=== PATIENT | female | born 1945 | race Hispanic/Latino ===

== ENCOUNTER → 2017-07-11 15:23 | Outpatient (CLI) | payer MEDICARE, OTHER, SELFPAY ==
--- NOTE | 2017-07-11 15:28 | DI.RAD.S_ITS ---
PROCEDURE: XR HIP W PEL IF DONE RT 2V INDICATIONS: Pain Right SI and hip TECHNIQUE: 2 views of the hip were acquired, including frontal view of the right hip during pelvis plain film examination. COMPARISON: None. FINDINGS: Bones: No fractures or dislocations. No suspicious bony lesions. The visualized pelvic ring appears intact. Soft tissues: No suspicious soft tissue calcifications or masses. 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 Note is made of a mild to moderate degree of symmetric sacroiliac joint degenerative osteoarthritic change, but the study is not optimized for SI joint visualization. Dictated by: Denis Saleh M.D. on 07/11/2017 at 16:25 Approved by: Denis Saleh M.D. on 07/11/2017 at 16:25
--- NOTE | 2017-07-11 15:28 | DI.RAD.S_ITS ---
PROCEDURE: XR LUMBAR SPINE 2-3V INDICATIONS: Pain Right SI and hip TECHNIQUE: 3 views of the lumbar spine were acquired. COMPARISON: None. FINDINGS: Bones: 5 rub-thh-unsllhr vertebrae are present. There is normal bony alignment. No vertebral body compression fractures. No suspicious bony lesions. Soft tissues: Overlying bowel gas pattern is normal. No suspicious soft tissue calcifications. IMPRESSION: There is a moderate degree of degenerative disc disease at L3-S1, most pronounced at L4-5 where disc height reduction is prominent. Facet osteoarthritis is prominent bilaterally at L4-5 and L5-S1. Spinal and foraminal stenosis likely is present at L4-5. Dictated by: Denis Saleh M.D. on 07/11/2017 at 16:24 Approved by: Denis Saleh M.D. on 07/11/2017 at 16:24
[2017-07-11 19:22] LABS: Free T4, Direct Thyroxine 1.12 ng/dL (0.78-2.19)
[2017-07-11 19:36] LABS: Thyroid Stimulating Hormone 3.03 uIU/mL (0.47-4.68)
== END ==
PROVIDERS: Family Provider Physician Assistant; PCP Physician Assistant; Visit Provider Physician Assistant
DX: M54.5 Low back pain (principal); M25.551 Pain in right hip; R53.83 Other fatigue; R63.5 Abnormal weight gain
CPT/HCPCS: 36415; 72100; 73502; 84439; 84443

== ENCOUNTER 2017-10-22 17:40 | Emergency (ER) | payer MEDICARE, OTHER, SELFPAY ==
[2017-10-22 17:55] VITALS: BP 202/89; PULSE 115; RESP 20; O2SAT 99; BMI 36.5
--- NOTE | 2017-10-22 18:06 | DI.RAD.S_ITS ---
PROCEDURE: XR CHEST 1V INDICATIONS: chest pain TECHNIQUE: One view of the chest was acquired. COMPARISON: None. FINDINGS: Surgical changes and devices: None. Lungs and pleura: No pleural effusions or pneumothorax. Lungs are clear. Mediastinum: Mediastinal contours appear normal. Heart size is normal. Bones and chest wall: No suspicious bony lesions. Overlying soft tissues appear unremarkable. IMPRESSION: No acute cardiopulmonary findings. Dictated by: Embre Poole M.D. on 10/22/2017 at 18:30 Approved by: Ember Poole M.D. on 10/22/2017 at 18:30
[2017-10-22 18:50] LABS: Add Manual Diff / Slide Review NO; Basophils Percent Auto 0.6 % (0-2); Eosinophils Percent Auto 0.3 % (2-4); Hematocrit 42.8 % (36-46); Hemoglobin 14.4 g/dL (12.0-16.0); Lymphocytes Percent Auto 13.1 % (25-40); Mean Corpuscular HGB Conc 33.6 % (30-36); Mean Corpuscular Hemoglobin 29.6 PG (26-34); Mean Corpuscular Volume 87.9 fL (80-100); Monocytes Percent Auto 3.2 % (3-14); Neutrophils Absolute Auto 9300 /uL (3000-5900); Neutrophils Percent Auto 82.8 % (50-75); Platelet Count 270 X10^3/uL (150-400); Red Blood Cell Count 4.86 X10^6/uL (4.0-5.2); White Blood Cell Count 11.2 X10^3/uL (4.5-11.0)
--- NOTE | 2017-10-22 19:01 | ED.WEAKNESS ---
HPI - Weakness General Chief complaint: Weakness Stated complaint: LEFT ARM PAIN Time Seen by Provider: 10/22/17 18:04 Source: patient Mode of arrival: ambulatory Limitations: no limitations History of Present Illness HPI Narrative: Patient is a 71-year-old female here for evaluation of left upper back pain and a doll toothache type pain in her left upper arm. She states that it has been constant for the past several days. She states she woke up 1 day with the pain. No chest pain. No shortness of breath. Took a hydrocodone at home prior to arrival for the symptoms but she states she became very nauseous and threw up afterwards. No fevers. Does have some neck pain. No specific trauma. She does state that is been constant for the past several days. She has gone to bed with it at night woke up with it in the morning. She came in today because she vomited earlier today. Related Data Home Medications Medication Instructions Recorded Confirmed [BIOSIL] 2 cap PO QDAY #0 03/22/16 albuterol sulfate HFA 90 2 puff INHALATION Q4-6H PRN 07/11/17 mcg/actuation aerosol inhaler complete b vitamin PO 07/11/17 07/11/17 cyclobenzaprine 10 mg tablet 10 mg PO Q8H 07/11/17 07/11/17 esomeprazole magnesium 40 mg 40 mg PO DAILY 07/11/17 capsule,delayed release vitamin b 12 PO 07/11/17 07/11/17 Previous Rx's Medication Instructions Recorded [place] 5/16 Inch ea INJ BID #180 04/04/16 fluticasone [Flovent HFA] 2 mcg INH Q12H #1 inh 04/04/16 pneumoc 13-guillermina conj-dip cr(PF) 0.5 ml IM X1 #1 ea 10/12/16 [Prevnar 13 (PF)] fexofenadine 180 mg PO HS #90 tab 03/06/17 insulin glargine (U-100) 100 40 unit SUBCUT BID #3 ml 06/26/17 unit/mL (3 mL) subcutaneous pen lisinopril 40 mg tablet 40 mg PO Q DAY #90 tab 06/26/17 pen needle, diabetic 33 gauge x #100 each 06/26/17 5/16 furosemide 20 mg tablet 20 mg PO DAILY #90 tab 07/20/17 cyclobenzaprine 10 mg PO TID PRN #14 tab 10/22/17 Allergies Allergy/AdvReac Type Severity Reaction Status Date / Time acetaminophen [ACETAMINOPHEN] AdvReac Severe (PERCOCET) Verified 10/22/17 17:55 CONVULSION oxycodone [OXYCODONE] AdvReac Severe (PERCOCET) Verified 10/22/17 17:55 CONVULSION hydrochlorothiazide AdvReac Mild nausea Verified 10/22/17 17:55 Review of Systems Constitutional Denies fatigue, Denies fever(s), Reports headache(s) and Denies malaise ENT Ears, Nose, Mouth, and Throat: Reports headache(s) and Denies disequilibrium Cardiovascular Denies chest pain and Denies dyspnea Respiratory Denies dyspnea Gastrointestinal Gastrointestinal: Denies abdominal pain, Denies change in stool character, Denies diarrhea, Reports nausea and Reports vomiting Genitourinary Denies hematuria and Denies dysuria Musculoskeletal Reports back pain, Reports myalgias, Denies arthralgias and Reports tingling Integumentary/Breasts Denies lesions and Denies rash Neurologic Reports headache(s), Reports tingling, Reports paresthesias and Denies disequilibrium Endocrine Denies fatigue Hematologic/Lymphatic Denies easy bleeding and Denies easy bruising [facility] Medical History Controlled type 2 diabetes mellitus without complication (Chronic 10/21/10) Essential hypertension (Chronic) Mild intermittent asthma with acute exacerbation (Chronic 06/01/10) Obesity (Chronic) Allergy (Chronic Unknown) Asthma (Chronic Unknown) Diabetes (Chronic Unknown) Diverticulosis (Chronic Unknown) Hypertension (Chronic Unknown) Back pain (Resolved Unknown) Colon polyps (Resolved Unknown) Macromastia (Resolved Unknown) Surgical History History of bilateral breast reduction surgery (Resolved 11/2016) History of total abdominal hysterectomy and bilateral salpingo-oophorectomy (Resolved 1989) Family History Mother Diabetes mellitus Diverticulitis Brother FH: CABG (coronary artery bypass surgery) Hypertension Diabetes mellitus Grandmother No problems noted. Social History Smoking Status: Former smoker Exam Initial Vital Signs Initial Vital Signs: Vital Signs Pulse Rate 115 H 10/22/17 17:55 Respiratory Rate 20 10/22/17 17:55 Blood Pressure 202/89 H 10/22/17 17:55 Pulse Oximetry 99 10/22/17 17:55 Const General: cooperative, comfortable (Uncomfortable.), well developed, well groomed and No acute distress Orientation: alert, awake and oriented x3 HENMT Head: normal to inspection and normocephalic Resp Effort & Inspection: normal respiratory effort Auscultation: clear to auscultation bilaterally Cardio Rate: regular rate Rhythm: regular rhythm Heart Sounds: no murmurs Pulses: radial pulses present GI Inspection: non-distended Palpation: soft Back/Spine/Pelvis Other: Patient with tenderness to palpation left upper back over the rhomboids and levator scapulae muscles. There is a muscle fullness in this area. This does seem to be the most sensitive area to touch according to the patient. Does not have this tenderness over the right side. Was able to reproduce the pain in her left arm by doing Spurling maneuver to the left. Skin Lesions: no lesions Rashes: no rashes Neuro General: alert, awake and oriented x3 Cognition: normal cognition Speech: speech normal Gait: normal gait Motor: muscle tone normal throughout Sensory Exam: no sensory deficits noted (Sensation intact to light touch left upper extremity) Extrem Other: Full range of motion of the left wrist left elbow left shoulder Psych Appearance: grossly normal and well kempt Course Orders Ordered: ED Orders 10/22/17 18:00 EKG-12 Lead Stat 10/22/17 18:06 XR chest 1V Stat 10/22/17 18:30 Complete Blood Count AUTO DIFF Stat Comprehensive Metabolic Panel Stat Lactate (Lactic Acid) Stat Lipase Stat Thyroid Stimulating Hormone Stat Troponin I Stat Discontinued Medications Cyclobenzaprine HCl (Flexeril 10 Mg Prepack) 1 bottle MISC SEEINSTR ONE Stop: 10/22/17 20:25 Last Admin: 10/22/17 20:40 Dose: 1 bottle Diazepam (Valium) 5 mg PO NOW ONE Stop: 10/22/17 19:03 Last Admin: 10/22/17 19:13 Dose: 5 mg Ondansetron HCl (Zofran Odt) 4 mg PO NOW ONE Stop: 10/22/17 19:03 Last Admin: 10/22/17 19:13 Dose: 4 mg Vital Signs - 8 hr 10/22/17 17:55 10/22/17 19:30 10/22/17 20:00 Pulse Rate 115 H 105 H 100 H Respiratory Rate 20 10 L 18 Blood Pressure 202/89 H Blood Pressure [Left Arm] 181/82 H 181/82 H Pulse Oximetry 99 97 94 MDM - Weakness Lab Data Attestation: I reviewed the patient's lab results. Result diagrams: 10/22/17 18:30 10/22/17 18:30 Lab Results 10/22/17 10/22/17 10/22/17 Range/Units 18:30 18:30 18:30 WBC 11.2 H (4.5-11.0) X10^3/uL RBC 4.86 (4.0-5.2) X10^6/uL Hgb 14.4 (12.0-16.0) g/dL Hct 42.8 (36-46) % MCV 87.9 (80-100) fL MCH 29.6 (26-34) PG MCHC 33.6 (30-36) % RDW 14.0 (11.6-14.8) % Plt Count 270 (150-400) X10^3/uL Neut % (Auto) 82.8 H (50-75) % Lymph % (Auto) 13.1 L (25-40) % [place] % (Auto) 3.2 (3-14) % Eos % (Auto) 0.3 L (2-4) % Baso % (Auto) 0.6 (0-2) % Neut # (Auto) 9300 H (4852-2442) /uL Sodium 145 (137-145) mmol/L Potassium 3.9 (3.4-5.1) mmol/L Chloride 107 (98-107) mmol/L Carbon Dioxide 28 (22-32) mmol/L BUN 18 H (7-17) mg/dL Creatinine 0.60 (0.52-1.04) mg/dL Estimated GFR > 60.0 (>60) mL/min BUN/Creatinine Ratio 30.0 H (6-22) Glucose 201 H (80-110) mg/dL Lactate 1.2 (0.7-2.1) mmol/L Calcium 9.4 (8.4-10.2) mg/dL Total Bilirubin 0.6 (0.2-1.3) mg/dL AST 50 H (14-36) IU/L ALT 37 (9-52) IU/L Alkaline Phosphatase 88 (38-126) U/L Troponin I < 0.012 (0.01-0.034) ng/mL Total Protein 7.9 (6.3-8.2) g/dL Albumin 4.5 (3.5-5.0) g/dL Globulin 3.4 (1.7-4.1) g/dL Albumin/Globulin Ratio 1.3 (1.0-2.8) Lipase 74 (23-300) U/L TSH (0.47-4.68) uIU/mL 10/22/17 Range/Units 18:30 WBC (4.5-11.0) X10^3/uL RBC (4.0-5.2) X10^6/uL Hgb (12.0-16.0) g/dL Hct (36-46) % MCV (80-100) fL MCH (26-34) PG MCHC (30-36) % RDW (11.6-14.8) % Plt Count (150-400) X10^3/uL Neut % (Auto) (50-75) % Lymph % (Auto) (25-40) % [place] % (Auto) (3-14) % Eos % (Auto) (2-4) % Baso % (Auto) (0-2) % Neut # (Auto) (4831-3604) /uL Sodium (137-145) mmol/L Potassium (3.4-5.1) mmol/L Chloride (98-107) mmol/L Carbon Dioxide (22-32) mmol/L BUN (7-17) mg/dL Creatinine (0.52-1.04) mg/dL Estimated GFR (>60) mL/min BUN/Creatinine Ratio (6-22) Glucose (80-110) mg/dL Lactate (0.7-2.1) mmol/L Calcium (8.4-10.2) mg/dL Total Bilirubin (0.2-1.3) mg/dL AST (14-36) IU/L ALT (9-52) IU/L Alkaline Phosphatase (38-126) U/L Troponin I (0.01-0.034) ng/mL Total Protein (6.3-8.2) g/dL Albumin (3.5-5.0) g/dL Globulin (1.7-4.1) g/dL Albumin/Globulin Ratio (1.0-2.8) Lipase (23-300) U/L TSH 2.73 (0.47-4.68) uIU/mL Urine Dip Bedside Urine Glucose Negative Bedside Urine Bilirubin - Negative Bedside Urine Ketone - Negative Urine Specific Catherine 1.010 Bedside Urine Occult Blood - Negative Bedside Urine pH 6.0 Bedside Urine Protein - Negative Bedside Urine Urobilinogen - Negative Bedside Urine Nitrite - Negative Bedside Urine Leukocytes - Negative Esterase Imaging Data Chest x-ray: Radiologist's impression: PROCEDURE: XR CHEST 1V INDICATIONS: chest pain TECHNIQUE: One view of the chest was acquired. COMPARISON: None. FINDINGS: Surgical changes and devices: None. Lungs and pleura: No pleural effusions or pneumothorax. Lungs are clear. Mediastinum: Mediastinal contours appear normal. Heart size is normal. Bones and chest wall: No suspicious bony lesions. Overlying soft tissues appear unremarkable. IMPRESSION: No acute cardiopulmonary findings. Dictated by: Ember Poole M.D. on 10/22/2017 at 18:30 Approved by: Ember Poole M.D. on 10/22/2017 at 18:30 ECG Data Attestation: I personally reviewed and interpreted this ECG as follows: Prior ECG tracings: not available for review Interpretation: Sinus tachycardia Ventricular rate of 109 Left anterior fascicular block LVH Nonspecific ST T wave changes MDM Narrative Medical decision making narrative: Patient has had constant pain for 3 days. It is reproducible. Does have a muscle fullness on her left upper back. EKG is unremarkable. Troponin is negative after consistent pain for 3 days. Her history and physical exam is not consistent with ACS. I suspect musculoskeletal etiology. I suspect that the muscle spasms that I feel in the left upper back or causing the radiculopathy in her left arm. There is no signs of infection. Physical exam is not consistent with CVA or TIA. She was given a Valium here in the emergency department which she states improved her symptoms from a 7/10 to a 2/10. Will hold on x-rays of the neck or the back or the arm as there is no specific trauma. I did discuss all this with the patient and her who is at bedside. Informed them of my concern for musculoskeletal etiology. Will send them home with a prescription for Flexeril. I informed her that this medication can make her drowsy and that she needs to take care not to fall at home. She was given return precautions. Informed her that she needed to contact her primary care doctor tomorrow for a follow-up to that of her symptoms do not improve that she could talk about the indications for an MRI. Patient and both expressed understanding and agreement with plan. Discharge Plan Departure Patient Disposition: Home Clinical Impression: Muscle spasm of back Discharge Date/Time: 10/22/17 20:48 Interventions: ED Discharge Assessment Last Done: 10/22/17 20:41 Instructions: DI for Cervical Muscle Strain, How To Perform RICE (Rest, Ice, Compress, Elevate) Activity Restrictions/Additional Instructions: Recommend you take all of the medication like we discussed and with food. You can also continue to take Motrin/ibuprofen and/or Tylenol/acetaminophen. Call your primary care doctor tomorrow for a follow-up. Return to the emergency department for any new or worsening symptoms. Prescriptions: New cyclobenzaprine 10 mg tablet 10 mg PO TID PRN (Reason: muscle spasm) Qty: 14 RF: 0 No Action vitamin b 12 PO RF: 0 complete b vitamin PO RF: 0 cyclobenzaprine 10 mg tablet 10 mg PO Q8H RF: 0 esomeprazole magnesium 40 mg capsule,delayed release(DR/EC) 40 mg PO DAILY RF: 0 albuterol sulfate 90 mcg/actuation HFA aerosol inhaler 2 puff INHALATION Q4-6H PRNRF: 0 [BIOSIL] 2 cap PO QDAY Qty: 0 RF: 0 fluticasone [Flovent HFA] 12 GM HFA aerosol inhaler 2 mcg INH Q12H Qty: 1 RF: 3 [place] 5/16 Inch INJ BID Qty: 180 RF: 4 pneumoc 13-guillermina conj-dip cr(PF) [Prevnar 13 (PF)] 0.5 ML syringe 0.5 ml IM X1 Qty: 1 RF: 0 fexofenadine 180 MG tablet 180 mg PO HS Qty: 90 RF: 3 lisinopril 40 mg tablet 40 mg PO Q DAY Qty: 90 RF: 3 pen needle, diabetic [Comfort EZ Pen [place]] 33 gauge x 5/16 needle .ROUTE .MEDSUPPLY Qty: 100 RF: 3 insulin glargine [Lantus Solostar U-100 Insulin] 100 unit/mL (3 mL) insulin pen 40 unit SUBCUT BID Qty: 3 RF: 3 furosemide 20 mg tablet 20 mg PO DAILY Qty: 90 RF: 0
[2017-10-22 19:08] LABS: Alanine Aminotransferase 37 IU/L (9-52); Albumin 4.5 g/dL (3.5-5.0); Albumin Globulin Ratio 1.3 (1.0-2.8); Alkaline Phosphatase 88 U/L (38-126); Aspartate Aminotransferase 50 IU/L (14-36); Bilirubin Total 0.6 mg/dL (0.2-1.3); Blood Urea Nitrogen 18 mg/dL (7-17); Calcium 9.4 mg/dL (8.4-10.2); Carbon Dioxide 28 mmol/L (22-32); Chloride 107 mmol/L (98-107); Estimated Glomerular Filt Rate > 60.0 mL/min (>60); Globulin 3.4 g/dL (1.7-4.1); Glucose 201 mg/dL (80-110); HEMOLYSIS < 15 (0-50); Lactate (Lactic Acid) 1.2 mmol/L (0.7-2.1); Lipase 74 U/L (23-300); Potassium 3.9 mmol/L (3.4-5.1); Sodium 145 mmol/L (137-145); Total Protein 7.9 g/dL (6.3-8.2)
[2017-10-22] MEDS: diazePAM 5 MG TABLET PO (19:13)
[2017-10-22] MEDS: ONDANSETRON 4 MG ODT PO (19:13)
[2017-10-22 19:20] LABS: Troponin I < 0.012 ng/mL (0.01-0.034)
[2017-10-22 19:30] VITALS: BP 181/82; PULSE 105; PULSE 106; RESP 10; O2SAT 97
[2017-10-22 19:39] LABS: Thyroid Stimulating Hormone 2.73 uIU/mL (0.47-4.68)
[2017-10-22 20:00] VITALS: BP 181/82; PULSE 100; RESP 18; O2SAT 94
[2017-10-22] MEDS: CYCLOBENZAPRINE 10 MG PREPACK 1 BOTTLE MISC (20:40)
== END 2017-10-22 20:48 | disposition home or self-care (01) ==
PROVIDERS: Emergency Provider Emergency Medicine; Family Provider Physician Assistant; PCP Physician Assistant
DX: M62.830 Muscle spasm of back (principal); R51 Headache; I10 Essential (primary) hypertension
CPT/HCPCS: 36591; 71045; 80053; 81003; 83605; 83690; 84443; 84484; 85025; 93005; 99283; 99285

== ENCOUNTER → 2017-10-26 15:14 | Outpatient (CLI) | payer MEDICARE, OTHER, SELFPAY ==
--- NOTE | 2017-10-26 15:16 | DI.MRI.S_ITS ---
PROCEDURE: MR CERVICAL SPINE WO CON INDICATIONS: NECK PAIN RADIATING DOWN LEFT ARM TECHNIQUE: Noncontrast sagittal T1 spin echo and T2 fast spin echo, sagittal STIR, foraminal oblique sagittal T2 fast spin echo, and axial gradient echo or T2 fast spin echo through the cervical spine. COMPARISON: None. FINDINGS: Image quality: Excellent. Alignment and Curvature: There is straightening of cervical curvature; otherwise normal bony alignment. Bone Marrow: Marrow demonstrates normal overall signal. Spinal Cord: Visualized spinal cord has normal size and signal. No cerebellar tonsillar herniation. Paraspinous Soft Tissues: No paravertebral masses. Prevertebral soft tissues are normal in thickness. C2-C3: Preserved disc height. Moderate disc desiccation. There is mild posterior disc bulge and uncovertebral hypertrophy. The central canal is patent. No foraminal stenosis. C3-C4: Mild loss of disc height. Moderate disc desiccation. There is broad posterior disc bulge and uncovertebral hypertrophy. The central canal is sgqbdega-kz-ugplzuei narrowed. Severe right and mild left foraminal stenosis. C4-C5: Mild loss of disc height. Moderate disc desiccation. There is broad posterior disc bulge and uncovertebral hypertrophy. The central canal is moderately narrowed. Moderate bilateral foraminal stenosis. C5-C6: Mild loss of disc height. Moderate disc desiccation. There is broad posterior disc bulge and uncovertebral hypertrophy. The central canal is moderately narrowed. Moderate bilateral foraminal stenosis. C6-C7: Mild loss of disc height. Moderate disc desiccation. There is circumferential disc bulge. The central canal is ueza-sb-ffrintqlxy narrowed. Mild bilateral foraminal stenosis. C7-T1: Normal appearance. IMPRESSION: 1. Multilevel degenerative disc disease and facet arthropathy as described. 2. Zjzbmzaz-zc-dxvrin central canal stenosis at C3-C4, moderate central canal stenosis at C4-C5 and C5-C6. 3. Multilevel foraminal stenosis as described, severe at C3-C4 on the right, and moderate at C4-C5 bilaterally at C5-C6 bilaterally. Dictated by: Bandar Dhillon M.D. on 10/26/2017 at 17:10 Approved by: Bandar Dhillon M.D. on 10/26/2017 at 17:16
== END ==
PROVIDERS: Family Provider Physician Assistant; PCP Physician Assistant; Visit Provider Physician Assistant
DX: M50.11 Cervical disc disorder with radiculopathy, high cervical region (principal); M47.22 Other spondylosis with radiculopathy, cervical region; M48.02 Spinal stenosis, cervical region
CPT/HCPCS: 72141

== ENCOUNTER → 2018-01-08 11:37 | Outpatient (CLI) | payer MEDICARE, OTHER, SELFPAY ==
--- NOTE | 2018-01-08 | DI.MG.S_ITS ---
BILATERAL DIGITAL SCREENING MAMMOGRAM 3D/2D WITH CAD: 01/08/2018 CLINICAL: Routine screening. Comparison is made to exams dated: 10/07/2016 mammogram, 05/11/2015 mammogram, and 05/03/2013 mammogram - [facility]. There are scattered fibroglandular elements in both breasts. Current study was also evaluated with a Computer Aided Detection (CAD) system. There is an oval equal density asymmetry with an indistinct margin in the right breast at 1 o'clock middle depth. No other significant masses, calcifications, or other findings are seen in either breast. IMPRESSION: INCOMPLETE: NEEDS ADDITIONAL IMAGING EVALUATION The oval equal density asymmetry in the right breast is indeterminate. Mediolateral and spot compression views as well as additional views with possible ultrasound are recommended. This exam was interpreted at Station ID: [id number]. NOTE: For mammograms, a report in lay terms will be sent to the patient. Approximately 15% of breast malignancies will not be visualized mammographically. In the management of a palpable breast mass, a negative mammogram must not discourage biopsy of a clinically suspicious lesion. Electronically Signed By: Heraclio fagan/adrianne:01/09/2018 11:43:22 letter sent: Additional Imaging Needed ACR BI-RADS Category 0: Incomplete [id number]
== END ==
PROVIDERS: Family Provider Physician Assistant; PCP Physician Assistant; Visit Provider Physician Assistant
DX: Z12.31 Encounter for screening mammogram for malignant neoplasm of breast (principal)
CPT/HCPCS: 77063; 77067

== ENCOUNTER → 2018-01-25 12:52 | Outpatient (CLI) | payer MEDICARE, OTHER, SELFPAY ==
--- NOTE | 2018-01-25 12:53 | DI.MG.S_ITS ---
UNILATERAL RIGHT DIGITAL DIAGNOSTIC MAMMOGRAM 3D/2D WITH ADDITIONAL VIEWS: 01/25/2018 CLINICAL: Additional evaluation requested from prior study. Comparison is made to exams dated: 01/08/2018 mammogram, 10/20/2016 mammogram, and 10/07/2016 mammogram - [facility]. There are scattered fibroglandular elements in right breast. Previously identified oval equal density asymmetry with an indistinct margin in the medial right breast (described as being at 1 o'clock middle depth on comparison screening mammograms) persists with additional views. The asymmetry measures approximately 1 cm in greatest diameter. IMPRESSION: INCOMPLETE: NEEDS ADDITIONAL IMAGING EVALUATION Previously identified oval equal density asymmetry with an indistinct margin in the medial right breast (described as being at 1 o'clock middle depth on comparison screening mammograms) persists with additional views. A targeted ultrasound is recommended for further evaluation, and will be performed immediately following this exam. This exam was interpreted at Station ID: [id number]. NOTE: For mammograms, a report in lay terms will be sent to the patient. Approximately 15% of breast malignancies will not be visualized mammographically. In the management of a palpable breast mass, a negative mammogram must not discourage biopsy of a clinically suspicious lesion. Electronically Signed By: Brett Do M.D. ecl/:01/25/2018 13:35:01 letter sent: Additional Imaging Needed ACR BI-RADS Category 0: Incomplete [id number]
--- NOTE | 2018-01-25 12:53 | DI.US.S_ITS ---
LIMITED ULTRASOUND OF RIGHT BREAST: 01/25/2018 CLINICAL: Patient returns for additional imaging over a suspected mass in the right breast. Comparison is made to exams dated: 01/25/2018 mammogram, 01/08/2018 mammogram, and 10/20/2016 mammogram - [facility]. Real-time and Doppler ultrasound of the right breast upper inner quadrant were performed. Rivera scale images of the real-time examination were reviewed. There is 0.9 cm x 0.9 cm x 0.8 cm oval mass with an indistinct margin in the right breast at 3 o'clock posterior depth 5 cm from the nipple. This oval mass is hypoechoic with posterior acoustic shadowing. Color flow imaging demonstrates that there is no increase in vascularity. Targeted ultrasound of the right axilla demonstrates morphologically normal lymph nodes. IMPRESSION: SUSPICIOUS OF MALIGNANCY 1) The 0.9 cm x 0.9 cm x 0.8 cm oval mass in the right breast is at a low suspicion for malignancy. An ultrasound guided biopsy is recommended. 2) No right axillary lymphadenopathy. These results and recommendations were discussed with the patient at the time of the exam by the [facility] Radiologist Dr. Agus Umana in person. This exam was interpreted at Station ID: [id number]. Electronically Signed By: Brett Do M.D. ecl/:01/25/2018 14:30:35 letter sent: Biopsy Required Ultrasound BI-RADS: 4a Suspicious abnormality - low suspicion for malignancy
== END ==
PROVIDERS: PCP Physician Assistant; Visit Provider Physician Assistant
DX: R92.8 Other abnormal and inconclusive findings on diagnostic imaging of breast (principal); N63.12 Unspecified lump in the right breast, upper inner quadrant
CPT/HCPCS: 76642; 77065; G0279

== ENCOUNTER → 2018-02-14 12:42 | Outpatient (CLI) | payer MEDICARE, OTHER, SELFPAY ==
--- NOTE | 2018-02-14 | PATH_ITS ---
[facility] [place] Accession Number: [id number] . 01 Material submitted: . RIGHT BREAST MASS . 01 Clinical history: . A: RIGHT BREAST MASS 3:00 5CM FN . 01 Diagnosis: Right Breast Mass, Image-Guided Biopsy: Benign breast parenchyma with fat necrosis, see microscopic description. Negative for in situ or invasive carcinoma. MRV/02/16/2018 . 01 Comment: This case has also been reviewed by Dr. Aiyana Collins, who concurs with the diagnosis. . 01 Electronically signed: . Laine Gonzalez MD, Pathologist NPI- [id number] . 01 Gross description: . Received one formalin-filled container labeled with the patient's name and designated right breast mass 3 o'clock, 5 cm FN. The specimen is received with plastic filter in container, sample loose in container, and consists of multiple fragments of light yellow-matamoros soft tissues, which aggregate to 2.0 x 0.5 x 0.2 cm. The specimen is filtered and entirely submitted in one cassette. Collection date 02/14/2018. Collection time 1:52 p, per container. Total fixation time 12 hours up to 24. ([facility]:[id number]) /[facility] . 01 Microscopic: . Microscopic examination reveals a nodular area composed of fat necrosis, fibrosis, collection of histiocytes and multinucleated giant cell reaction. There is surrounding breast parenchyma without evidence of atypia or malignancy. A limited panel of immunostains is performed to better evaluate the collection of cells surrounding the fat with the following results: . CD68 highlights histiocytes and CICI is negative for epithelial cells in the area of interest. These results, along with the morphology, support the diagnosis. Fat necrosis may be secondary to trauma. . * This test was developed and its performance characteristics determined by [facility]. It has not been cleared or approved by the U.S. Food and Drug Administration. The FDA has determined that such clearance or approval is not necessary. This test is used for clinical purposes. It should not be regarded as investigational or for research. . 01 Pathologist provided ICD-10: N63.10 . 01 CPT . 313604, X40213, M43192 Performed at: [address] [address], [place], [place] [id number] MD Heraclio James MD Phone: [phone]
--- NOTE | 2018-02-14 | DI.MG.S_ITS ---
UNILATERAL RIGHT DIGITAL DIAGNOSTIC MAMMOGRAM POST-NEEDLE BIOPSY: 02/14/2018 CLINICAL: Post right breast ultrasound biopsy clip placement imaging. Comparison is made to exams dated: 01/25/2018 mammogram, 01/08/2018 mammogram, and 10/20/2016 mammogram - [facility]. There are scattered fibroglandular elements in right breast. The biopsy clip is seen at the expected biopsy site. IMPRESSION: POST PROCEDURE MAMMOGRAM FOR MARKER PLACEMENT The biopsy clip is seen at the biopsy site. This exam was interpreted at Station ID: [id number]. NOTE: For mammograms, a report in lay terms will be sent to the patient. Approximately 15% of breast malignancies will not be visualized mammographically. In the management of a palpable breast mass, a negative mammogram must not discourage biopsy of a clinically suspicious lesion. Electronically Signed By: Bandar Dhillon M.D. fx/:02/15/2018 13:25:06 Entry: - 02/15/2018 13:25:06 ACR BI-RADS Category Post-procedure mammogram for marker placement
--- NOTE | 2018-02-14 12:44 | DI.US.S_ITS ---
ULTRASOUND GUIDED BIOPSY RIGHT BREAST USING VACUUM DEVICE WITH POST MAMMOGRAPHIC AND ULTRASOUND IMAGIN02/14/2018 CLINICAL: Right breast mass. PATIENT CONSENT: Risks (minor bleeding, infection, vasovagal reaction and repeat procedure), benefits and alternatives were explained to the patient and written informed consent was obtained. Correlation is made to exams dated: 01/25/2018 ultrasound, 01/25/2018 mammogram, 01/08/2018 mammogram, 10/20/2016 mammogram, 10/07/2016 mammogram, and 11/30/2015 mammogram - [facility]. An ultrasound guided biopsy using real-time ultrasound was performed for the mass located in the right breast at 3 o'clock posterior depth. This was described on the previous ultrasound report. The skin was prepped in the usual manner. Local anesthetic was administered to the access site. A small incision was made in the breast. The abnormality was approached from the medial aspect. A 13 gauge biopsy needle was placed adjacent to the abnormality under ultrasound guidance. Once the needle was documented to be in the correct location, 6 specimens were obtained using the Mammotome biopsy system. Post procedure mammographic and ultrasound imaging demonstrates the clip at the targeted area. The specimens were sent to the laboratory for pathological analysis. IMPRESSION: ULTRASOUND GUIDED BIOPSY BENIGN Ultrasound guided biopsy of the mass in the right breast posterior depth was successful. Pathology demonstrates fat necrosis. This is concordant with the mammographic and ultrasound findings. However, given the indistinct margins on US, a followup mammogram and ultrasound are recommended in 6 months to demonstrate stability. This exam was interpreted at Station ID: [id number]. gracia Frank M.D., M.D./:02/20/2018 09:47:26
== END ==
PROVIDERS: PCP Physician Assistant; Visit Provider Physician Assistant
DX: N64.1 Fat necrosis of breast (principal)
CPT/HCPCS: 19083; 77065; 88305; 88341; 88342

== ENCOUNTER → 2018-02-15 09:24 | Outpatient (CLI) | payer MEDICARE, OTHER, SELFPAY ==
[2018-02-15 09:53] LABS: Hemoglobin A1C% w Est Avg Glu 5.9 % (4.0-6.0)
[2018-02-15 10:19] LABS: Alanine Aminotransferase 32 IU/L (9-52); Albumin 4.3 g/dL (3.5-5.0); Albumin Globulin Ratio 1.2 (1.0-2.8); Alkaline Phosphatase 79 U/L (38-126); Aspartate Aminotransferase 46 IU/L (14-36); BUN Creatinine Ratio 32.9 (6-22); Bilirubin Total 0.8 mg/dL (0.2-1.3); Blood Urea Nitrogen 23 mg/dL (7-17); Calcium 9.7 mg/dL (8.4-10.2); Carbon Dioxide 29 mmol/L (22-32); Chloride 104 mmol/L (98-107); Cholesterol 145 mg/dL (140-199); Estimated Glomerular Filt Rate > 60.0 mL/min (>60); Globulin 3.7 g/dL (1.7-4.1); Glucose 105 mg/dL (80-110); HDL Cholesterol 39 mg/dL (40-60); HEMOLYSIS < 15 (0-50); LDL Cholesterol Calculated 91 mg/dL (<100); Potassium 4.7 mmol/L (3.4-5.1); Sodium 144 mmol/L (137-145); Triglycerides 76 mg/dL (35-150)
[2018-02-15 10:39] LABS: Microalbumi Creatinin Ratio Ur 7.6 ug/mg CR (<30); Microalbumin Urine Random 1.2 mg/dL (0-1.6)
== END ==
PROVIDERS: PCP Physician Assistant; Visit Provider Physician Assistant
DX: E11.9 Type 2 diabetes mellitus without complications (principal); E66.9 Obesity, unspecified; I10 Essential (primary) hypertension
CPT/HCPCS: 36415; 80053; 80061; 82043; 82570; 83036

== ENCOUNTER → 2018-03-05 12:32 | Outpatient (CLI) | payer MEDICARE, OTHER, SELFPAY ==
[2018-03-05 13:41] LABS: Basophils Percent Auto 0.5 % (0-2); Eosinophils Percent Auto 0.5 % (2-4); Hematocrit 43.7 % (36-46); Hemoglobin 14.4 g/dL (12.0-16.0); Lymphocytes Percent Auto 24.8 % (25-40); Mean Corpuscular HGB Conc 32.9 % (30-36); Mean Corpuscular Volume 88.2 fL (80-100); Monocytes Percent Auto 5.4 % (3-14); Neutrophils Percent Auto 68.8 % (50-75); Platelet Count 305 X10^3/uL (150-400); Red Blood Cell Count 4.95 X10^6/uL (4.0-5.2); Red Cell Distribution Width 13.9 % (11.6-14.8); White Blood Cell Count 11.2 X10^3/uL (4.5-11.0)
[2018-03-05 13:42] LABS: Add Manual Diff / Slide Review NO; Basophils Absolute Auto 100 /uL (0-100); Eosinophils Absolute Auto 100 /uL (0-450); Lymphocytes Absolute Auto 2800 /uL (1100-4500); Monocytes Absolute Auto 600 /uL (0-900); Neutrophils Absolute Auto 7700 /uL (1500-7000)
[2018-03-05 14:34] LABS: Alanine Aminotransferase 45 IU/L (9-52); Albumin 4.6 g/dL (3.5-5.0); Albumin Globulin Ratio 1.4 (1.0-2.8); Alkaline Phosphatase 92 U/L (38-126); Aspartate Aminotransferase 56 IU/L (14-36); Bilirubin Total 0.7 mg/dL (0.2-1.3); Blood Urea Nitrogen 21 mg/dL (7-17); Carbon Dioxide 25 mmol/L (22-32); Chloride 102 mmol/L (98-107); Estimated Glomerular Filt Rate > 60.0 mL/min (>60); Globulin 3.4 g/dL (1.7-4.1); Glucose 131 mg/dL (80-110); HEMOLYSIS < 15 (0-50); Potassium 4.1 mmol/L (3.4-5.1); Sodium 140 mmol/L (137-145)
== END ==
PROVIDERS: PCP Physician Assistant; Visit Provider Physician Assistant
DX: K62.5 Hemorrhage of anus and rectum (principal); R10.9 Unspecified abdominal pain; R11.0 Nausea
CPT/HCPCS: 36415; 80053; 85025

== ENCOUNTER → 2018-03-07 10:40 | Outpatient (CLI) | payer MEDICARE, OTHER, SELFPAY | PROVIDERS: PCP Physician Assistant; Visit Provider Physician Assistant | DX: R10.30 Lower abdominal pain, unspecified (principal); K62.5 Hemorrhage of anus and rectum; R11.0 Nausea | CPT/HCPCS: 87015; 87045; 87427; 87899 ==

== ENCOUNTER → 2018-03-20 12:37 | Outpatient (CLI) | payer MEDICARE, OTHER, SELFPAY ==
--- NOTE | 2018-03-20 12:39 | DI.RAD.S_ITS ---
PROCEDURE: XR ABDOMEN MIN 2V INDICATIONS: Abdominal pain; constipation TECHNIQUE: 2 views of the abdomen were acquired. COMPARISON: None. FINDINGS: Surgical changes and devices: None. Bowel: No pneumoperitoneum. The bowel gas pattern is normal. Large amount of stool Soft tissues: No masses; visualized solid organ contours appear normal in size. No suspicious abdominal calcifications. Bones: No suspicious bony abnormalities. Lower lumbar spondylosis and mild bilateral hip joint degeneration. IMPRESSION: Large amount of stool. No pathologic bowel dilatation to suggest obstruction. Dictated by: Agus Umana M.D. on 03/20/2018 at 14:30 Approved by: Agus Umana M.D. on 03/20/2018 at 14:31
--- NOTE | 2018-03-20 12:39 | DI.US.S_ITS ---
PROCEDURE: US ABDOMEN COMPLETE INDICATIONS: ABDOMINAL PAIN, CONSTIPATION TECHNIQUE: Real-time scanning was performed of the abdominal and retroperitoneal organs, with image documentation. COMPARISON: [facility], US, ABDOMEN COMPLETE, 05/03/2013, 11:08. FINDINGS: Liver: Liver is normal in size and coarsely echogenic. Right hepatic cyst measures 2.9 x 2.3 x 2.4 cm Gallbladder: There are multiple mobile gallstones. No definite gallbladder wall thickening or sonographic Keene sign. Biliary ducts: Intrahepatic bile ducts are non-dilated. Extrahepatic bile duct caliber measures 2-3 mm. Normal is 6-7 mm or less in diameter, or 10 mm or less post-cholecystectomy. Pancreas: Visualized portions of the pancreas are sonographically normal. Spleen: Spleen is normal in size and homogeneous in echotexture. Kidneys: Kidneys are normal in size and echotexture. Right kidney measures 11.2 cm long; left kidney measures 11.5 cm long. No hydronephrosis or nephrolithiasis. No solid masses. Aorta: Visualized aorta is normal in caliber at less than 3 cm. Iliacs: Proximal common iliac arteries are normal in caliber at less than 2.5 cm. IVC: Intrahepatic inferior vena cava is patent. Miscellaneous: No free abdominal fluid. IMPRESSION: Cholelithiasis without other sonographic criteria for acute cholecystitis. Right hepatic cyst. Coarse echogenic liver suggesting diffuse hepatocellular disease/fatty infiltration. Please correlate with LFTs. Dictated by: Agus Umana M.D. on 03/20/2018 at 15:27 Approved by: Agus Umana M.D. on 03/20/2018 at 15:29
== END ==
PROVIDERS: PCP Physician Assistant; Visit Provider Physician Assistant
DX: R10.30 Lower abdominal pain, unspecified (principal); K59.00 Constipation, unspecified; K80.20 Calculus of gallbladder without cholecystitis without obstruction; K76.89 Other specified diseases of liver
CPT/HCPCS: 74019; 76700

== ENCOUNTER 2018-04-24 06:19 | Day surgery (SDC) | payer MEDICARE, OTHER, SELFPAY ==
[2018-04-24] VITALS (9 sets, daily range): BP systolic 97–154; BP diastolic 41–79; PULSE 91–115; RESP 10–19; TEMP 36.1–36.6; O2SAT 94–99; BMI 34.1
--- NOTE | 2018-04-24 | PATH_ITS ---
[facility] Accession Number: [id number] . 01 Material submitted: . PART A: COLON POLYP BIOPSY AT 35 PART B: COLON POLYP BIOPSY AT 70 CM PART C: COLON POLYP BIOPSY AT 15 CM X8 . 02 Diagnosis: A. Colon, Polyp at 35, Biopsy: Colonic mucosa with a few small benign lymphoid aggregates and no other diagnostic abnormality. Negative for dysplasia and malignancy. . B. Colon, Polyp at 70 cm, Biopsy: Tubular adenoma. . C. Colon, Polyps at 15 cm x8, Biopsies: Hyperplastic polyps. MRV/04/25/2018 . 02 Electronically signed: . Inna Weller MD, Pathologist NPI- [id number] . 01 Gross description: . Received three formalin-filled containers each labeled with the patient's name. . A. In a container labeled colon biopsy at 35 cm are multiple less than 0.1 to 0.3 cm portions of tissue, which are entirely submitted in cassette A. B. In a container labeled colon polyp at 70 cm are two 0.1 to 0.3 cm portions of tissue. Entirely submitted in cassette B. C. In a container labeled colon polyp at 15 cm are multiple less than 0.1 to 0.3 cm portions of tissue. Entirely submitted in cassette C. ([facility]:[id number]) . /[facility] . 02 Pathologist provided ICD-10: D12.6 . 02 CPT . 942769, 872609, 978871 Performed at: 01 [facility] [address], [place], [place] [id number] MD Heraclio James MD Phone: [phone] Performed at: 02 [facility] [place] [address] [place] [id number] MD Inna Weller MD Phone: [phone]
--- NOTE | 2018-04-24 08:14 | PM.PREOP ---
Pre-operative Note Interval Note History & Physical reviewed/Exam performed by Physician: Yes Changes to H&P: No ASA Class (for procedural sedation): III
[2018-04-24] MEDS: ONDANSETRON 4 MG/2 ML INJ IV (08:30)
[2018-04-24] MEDS: SCOPOLAMINE 1 PATCH TOP (08:33)
[2018-04-24] MEDS: MIDAZOLAM 5 MG/5 ML VIAL IV (08:37)
[2018-04-24] MEDS: fentaNYL 250 MCG/5 ML INJ IV (08:38)
--- NOTE | 2018-04-24 08:58 | PM.OP.ENDO ---
Operative Date/Time/Diagnoses Date of procedure: 04/24/18 Time of procedure: 08:58 Pre-op diagnosis: MULTIPLE TINY POLYPS. A few scattered diverticuli. Minor hemorrhoidal disease. Post-op diagnosis: same Procedure & Clinicians Study performed: Colonoscopy with cold biopsy Same procedure as scheduled: Yes Indications: Determine cause of rectal bleeding Surgeon: Alexander Akbar Procedure Notes SCOAP/Timeout: Performed Procedure in detail: The patient was placed in the left lateral decubitus position and underwent IV sedation directed by the surgeon consisting of fentanyl and Versed. Digital exam was unremarkable. The scope was inserted and advanced through the rectum into the sigmoid, descending, transverse, and ascending colon. I removed a polyp on the way in at 35 cm from the anal verge using biopsy forceps. A rare diverticula was seen.. The cecum was reached identified by the ileocecal valve and the appendiceal opening. The ileocecal valve was briefly cannulated. The terminal ileum was normal in appearance. The scope was gradually brought out. Additional Polyps were found at the 70 cm and within the rectum there were 8 very small lesions which I biopsied and removed. I suspect most of these are hyperplastic or lymphoid in nature. They could however be very early adenomas. The scope ultimately was retroflexed in the rectum. The appearance was remarkable for minor scarring and very small hemorrhoidal disease. There was 1 very small irritated hemorrhoid right at the anal verge. This may be the source of some of her bleeding.. The scope was removed and the patient tolerated the procedure well Scope withdrawal time: 17 min Sedation minutes: 37 Findings: diverticulosis, internal hemorrhoids (Very small) and polyp (Small scattered) Specimen(s): other (Polyps) Complications: none Recommendations: Colonscopy in 5 years Follow up: as needed Disposition: PACU
[2018-04-24] MEDS: PROCHLORPERAZINE 10 MG/2 ML VIAL IV (09:12)
--- NOTE | 2018-04-24 09:16 | SUR.PHASEI ---
Pt with hx of post op nausea, compazine 10mg iv given as directed, pt not nauseated at present.
--- NOTE | 2018-04-24 09:18 | SUR.PHASEI ---
glasses placed back on pt.
--- NOTE | 2018-04-24 09:35 | SUR.PHASEII ---
Pt arrived to phase II via stretcher. pt resting with eyes closed and easily arousable to voice when spoken to. pt brought back to bedside and reviewed dc instructions. abd soft at this time. bed in lowest position and call light given to pt. pt appears comfortable at this time.
--- NOTE | 2018-04-24 09:58 | SUR.PHASEII ---
pt reports blood pressure reading in phase II is baseline for her. pt reports was anxious in pre op relating to high bp reading than normal for her.
== END 2018-04-24 09:59 | disposition home or self-care (01) ==
PROVIDERS: PCP Physician Assistant; Visit Provider Specialist
PROC: 0DJD8ZZ Inspection of Lower Intestinal Tract, Via Natural or Artificial Opening Endoscopic (ICD-10-PCS; CPT 45378; principal; 2018-04-24 07:45)
DX: K62.5 Hemorrhage of anus and rectum (principal); J45.909 Unspecified asthma, uncomplicated; E11.9 Type 2 diabetes mellitus without complications; Z79.4 Long term (current) use of insulin; K57.30 Diverticulosis of large intestine without perforation or abscess without bleeding; K64.8 Other hemorrhoids; D12.6 Benign neoplasm of colon, unspecified
CPT/HCPCS: 45380; 88305; 99152; 99153; J0780; J2250; J2405; J3010

== ENCOUNTER → 2018-08-07 11:20 | Outpatient (CLI) | payer MEDICARE, OTHER, SELFPAY ==
--- NOTE | 2018-08-07 12:14 | DI.MG.S_ITS ---
UNILATERAL RIGHT DIGITAL DIAGNOSTIC MAMMOGRAM 3D/2D SHORT-TERM FOLLOW-UP: 08/07/2018 CLINICAL: Patient returns for a 6 month follow up of the right breast. Post biopsy. Comparison is made to exams dated: 02/14/2018 mammogram, 01/25/2018 mammogram, and 01/08/2018 mammogram - [facility]. There are scattered fibroglandular elements in right breast. There are new grouped fine coarse dystrophic calcifications in the right breast at 2 o'clock posterior depth. There also is a biopsy clip in the right breast at 5 o'clock middle depth. No other significant masses or calcifications are seen in the breast. IMPRESSION: PROBABLY BENIGN The new grouped fine coarse dystrophic calcifications in the right breast at 2 o'clock posterior depth likely represent fat necrosis and are probably benign. A follow-up mammogram in 6 months is recommended. A follow-up mammogram in 6 months is recommended to demonstrate stability. This exam was interpreted at Station ID: [id number]. NOTE: For mammograms, a report in lay terms will be sent to the patient. Approximately 15% of breast malignancies will not be visualized mammographically. In the management of a palpable breast mass, a negative mammogram must not discourage biopsy of a clinically suspicious lesion. Electronically Signed By: Heraclio fagan/adrianne:08/07/2018 14:01:11 letter sent: Followup Recommended ACR BI-RADS Category 3: Probably benign [id number]
[2018-08-07 12:16] LABS: BUN Creatinine Ratio 31.7 (6-22); Blood Urea Nitrogen 19 mg/dL (7-17); Calcium 9.7 mg/dL (8.4-10.2); Carbon Dioxide 29 mmol/L (22-32); Chloride 105 mmol/L (98-107); Estimated Glomerular Filt Rate > 60.0 mL/min (>60); Glucose 101 mg/dL (80-110); HEMOLYSIS < 15 (0-50); Potassium 4.7 mmol/L (3.4-5.1); Sodium 143 mmol/L (137-145)
[2018-08-07 14:27] LABS: Hemoglobin A1C% w Est Avg Glu 6.1 % (4.0-6.0)
== END ==
PROVIDERS: PCP Physician Assistant; Visit Provider Physician Assistant
DX: R92.1 Mammographic calcification found on diagnostic imaging of breast (principal); E11.9 Type 2 diabetes mellitus without complications; I10 Essential (primary) hypertension; Z87.898 Personal history of other specified conditions
CPT/HCPCS: 36415; 77065; 80048; 83036; G0279

== ENCOUNTER → 2019-03-05 12:41 | Outpatient (CLI) | payer MEDICARE, OTHER, SELFPAY ==
--- NOTE | 2019-03-05 12:44 | DI.MG.S_ITS ---
BILATERAL DIGITAL DIAGNOSTIC MAMMOGRAM 3D/2D: 03/05/2019 CLINICAL: Patient returns for 6 month follow up of right breast, due for bilateral exam. Comparison is made to exams dated: 08/07/2018 mammogram, 02/14/2018 mammogram, 01/25/2018 mammogram, and 01/08/2018 mammogram - [facility]. There are scattered fibroglandular elements in both breasts. There is a biopsy site marker on the right breast. Stable postoperative changes of the bilateral breast from prior breast reduction mammoplasties. There are probably benign grouped coarse calcifications in the right breast in the posterior depth in the upper inner quadrant that appear more prominent. No significant masses, calcifications, or other findings are seen in either breast. IMPRESSION: PROBABLY BENIGN Right breast posterior depth coarse calcfications appear more prominent and likely represent continued evolution of fat necrosis/dystrophic calcifications. A follow-up right mammogram in 6 months is recommended to demonstrate stability or expected progression of calcifications. No mammographic evidence of malignancy in the left breast. This exam was interpreted at Station ID: [id number]. NOTE: For mammograms, a report in lay terms will be sent to the patient. Approximately 15% of breast malignancies will not be visualized mammographically. In the management of a palpable breast mass, a negative mammogram must not discourage biopsy of a clinically suspicious lesion. Electronically Signed By: Lam Fleming M.D. at/:03/05/2019 14:02:26 letter sent: Followup Recommended ACR BI-RADS Category 3: Probably benign [id number]
== END ==
PROVIDERS: PCP Physician Assistant; Visit Provider Physician Assistant
DX: R92.8 Other abnormal and inconclusive findings on diagnostic imaging of breast (principal); R92.1 Mammographic calcification found on diagnostic imaging of breast
CPT/HCPCS: 77066; G0279

== ENCOUNTER → 2019-03-11 10:33 | Outpatient (CLI) | payer MEDICARE, OTHER, SELFPAY ==
[2019-03-11 11:23] LABS: Alanine Aminotransferase 26 IU/L (<35); Albumin 4.8 g/dL (3.5-5.0); Albumin Globulin Ratio 1.3 (1.0-2.8); Alkaline Phosphatase 100 U/L (38-126); Aspartate Aminotransferase 48 IU/L (14-36); BUN Creatinine Ratio 24.4 (6-22); Bilirubin Total 0.6 mg/dL (0.2-1.3); Blood Urea Nitrogen 22 mg/dL (7-17); Carbon Dioxide 24 mmol/L (22-32); Chloride 105 mmol/L (98-107); Cholesterol 188 mg/dL (140-199); Estimated Glomerular Filt Rate > 60.0 mL/min (>60); Globulin 3.7 g/dL (1.7-4.1); Glucose 166 mg/dL (80-110); HDL Cholesterol 44 mg/dL (40-60); HEMOLYSIS < 15 (0-50); LDL Cholesterol Calculated 124 mg/dL (<100); Potassium 4.9 mmol/L (3.4-5.1); Sodium 140 mmol/L (137-145); Total Protein 8.5 g/dL (6.3-8.2); Triglycerides 102 mg/dL (35-150)
[2019-03-11 13:34] LABS: Hemoglobin A1C% w Est Avg Glu 6.4 % (4.0-6.0)
[2019-03-11 16:27] LABS: Creatinine Urine Random 382.8 mg/dL; Microalbumi Creatinin Ratio Ur 97.1 ug/mg CR (<30); Microalbumin Urine Random 37.2 mg/dL (0-1.6)
== END ==
PROVIDERS: PCP Physician Assistant; Referring Provider Physician Assistant; Visit Provider Physician Assistant
DX: E11.9 Type 2 diabetes mellitus without complications (principal); I10 Essential (primary) hypertension
CPT/HCPCS: 36415; 80053; 80061; 82043; 82570; 83036

== ENCOUNTER → 2019-09-04 12:41 | Outpatient (CLI) | payer MEDICARE, OTHER, SELFPAY ==
--- NOTE | 2019-09-04 12:46 | DI.US.S_ITS ---
PROCEDURE: US ABDOMEN COMPLETE INDICATIONS: DIFFUSE ABDOMINAL TENDERNESS, CHANGE IN BOWEL HABITS TECHNIQUE: Real-time scanning was performed of the abdominal and retroperitoneal organs, with image documentation. COMPARISON: [facility], US, US ABDOMEN COMPLETE, 03/20/2018, 12:52. FINDINGS: Liver: Coarsened and echogenic. Within normal limits in size. Decreased sonographic penetration. There is a cyst in the right hepatic lobe measuring 2.9 x 2.5 x 2.3 cm. Gallbladder: Nondilated. Echogenic layering debris with minimal shadowing is favored to represent sludge. This measures approximately 3.6 cm. No internal vascularity. Normal gallbladder wall thickness. No pericholecystic fluid. Negative sonographic Keene's sign. Biliary ducts: Intrahepatic bile ducts are non-dilated. Extrahepatic bile duct caliber measures 6 mm, previously 3 mm on ultrasound 03/20/2018. Normal is 6-7 mm or less in diameter, or 10 mm or less post-cholecystectomy. Pancreas: Not well seen. Spleen: Very limited visualization. Kidneys: Kidneys are normal in size and echotexture. Right kidney measures 12.3 cm long; left kidney measures 11.5 cm long. No hydronephrosis or nephrolithiasis. No solid masses. Aorta: Visualized aorta is normal in caliber at less than 3 cm. Iliacs: Proximal common iliac arteries are normal in caliber at less than 2.5 cm. IVC: Not well seen. Appears patent. Miscellaneous: No free abdominal fluid. IMPRESSION: Limited evaluation due to a poor acoustic windows and body habitus. 1. Increased hepatic echogenicity most consistent with hepatic steatosis. Other forms of hepatocellular disease could have similar appearance. 2. A simple appearing hepatic cyst in the right lobe measuring at 2.9 cm. 3. A probable sludge ball measuring 3.6 cm. 4. CBD is within normal limits but appears increased compared to the prior exam. 5. No free fluid seen. Dictated by: Russell Davis M.D. on 09/04/2019 at 16:41 Approved by: Russell Davis M.D. on 09/04/2019 at 16:47
[2019-09-04 14:37] LABS: Hemoglobin A1C% w Est Avg Glu 6.3 % (4.0-6.0)
[2019-09-04 14:54] LABS: Alanine Aminotransferase 29 IU/L (<35); Albumin 4.7 g/dL (3.5-5.0); Albumin Globulin Ratio 1.5 (1.0-2.8); Alkaline Phosphatase 100 U/L (38-126); Aspartate Aminotransferase 54 IU/L (14-36); BUN Creatinine Ratio 17.9 (6-22); Bilirubin Total 0.7 mg/dL (0.2-1.3); Blood Urea Nitrogen 14 mg/dL (7-17); Calcium 9.9 mg/dL (8.4-10.2); Carbon Dioxide 30 mmol/L (22-32); Chloride 103 mmol/L (98-107); Cholesterol 161 mg/dL (140-199); Estimated Glomerular Filt Rate > 60.0 mL/min (>60); Globulin 3.2 g/dL (1.7-4.1); Glucose 105 mg/dL (80-110); HDL Cholesterol 49 mg/dL (40-60); HEMOLYSIS < 15 (0-50); LDL Cholesterol Calculated 92 mg/dL (<100); Potassium 4.2 mmol/L (3.4-5.1); Sodium 141 mmol/L (137-145); Total Protein 7.9 g/dL (6.3-8.2); Triglycerides 102 mg/dL (35-150)
[2019-09-04 15:05] LABS: Free T4, Direct Thyroxine 1.24 ng/dL (0.78-2.19)
[2019-09-04 15:16] LABS: Creatinine Urine Random 86.4 mg/dL
[2019-09-04 15:19] LABS: Thyroid Stimulating Hormone 2.73 uIU/mL (0.47-4.68)
[2019-09-04 15:21] LABS: Microalbumi Creatinin Ratio Ur 8.1 ug/mg CR (<30); Microalbumin Urine Random 0.7 mg/dL (0-1.6)
== END ==
PROVIDERS: PCP Physician Assistant; Referring Provider Nurse Practitioner; Visit Provider Nurse Practitioner
DX: R10.819 Abdominal tenderness, unspecified site (principal); R19.4 Change in bowel habit; R14.0 Abdominal distension (gaseous); K76.89 Other specified diseases of liver; E11.69 Type 2 diabetes mellitus with other specified complication; E66.9 Obesity, unspecified; E78.5 Hyperlipidemia, unspecified; I10 Essential (primary) hypertension; R79.89 Other specified abnormal findings of blood chemistry; Z79.4 Long term (current) use of insulin; Z79.899 Other long term (current) drug therapy; Z87.898 Personal history of other specified conditions
CPT/HCPCS: 36415; 76700; 80053; 80061; 82043; 82570; 83036; 84439; 84443

== ENCOUNTER → 2019-09-18 13:02 | Outpatient (CLI) | payer MEDICARE, OTHER, SELFPAY ==
--- NOTE | 2019-09-18 | DI.MG.S_ITS ---
UNILATERAL RIGHT DIGITAL DIAGNOSTIC MAMMOGRAM 3D/2D SHORT-TERM FOLLOW-UP: 09/18/2019 CLINICAL: Patient returns for a 6 month follow up of the right breast. Comparison is made to exams dated: 03/05/2019 mammogram, 08/07/2018 mammogram, 02/14/2018 mammogram, 01/08/2018 mammogram, and 01/25/2018 mammogram - [facility]. There are scattered fibroglandular elements in right breast. There is a biopsy site marker on the right breast. Stable postoperative changes are again seen from prior breast reduction mammoplasty. There are probably benign grouped coarse calcifications in the right breast in the posterior depth in the upper inner quadrant that are more prominent and increased in number. No significant masses, calcifications, or other findings are seen in the breast. IMPRESSION: PROBABLY BENIGN Right breast posterior depth coarse calcfications appear more prominent and again likely represent continued evolution of fat necrosis/dystrophic calcifications. A follow-up right mammogram in 6 months is recommended to demonstrate stability or expected progression of calcifications. The patient will be due for a left breast screening mammogram at that time. A follow-up mammogram in 6 months is recommended to demonstrate stability. This exam was interpreted at Station ID: [id number]. NOTE: For mammograms, a report in lay terms will be sent to the patient. Approximately 15% of breast malignancies will not be visualized mammographically. In the management of a palpable breast mass, a negative mammogram must not discourage biopsy of a clinically suspicious lesion. Electronically Signed By: Aleks Donahue M.D. ar/:09/18/2019 14:01:11 letter sent: Followup Recommended ACR BI-RADS Category 3: Probably benign [id number]
== END ==
PROVIDERS: PCP Nurse Practitioner; Referring Provider Nurse Practitioner; Visit Provider Physician Assistant
DX: R92.8 Other abnormal and inconclusive findings on diagnostic imaging of breast (principal); R92.1 Mammographic calcification found on diagnostic imaging of breast
CPT/HCPCS: 77065; G0279

== ENCOUNTER → 2019-09-22 09:22 | Outpatient (CLI) | payer MEDICARE, OTHER, SELFPAY ==
[2019-09-23 17:38] LABS: COVID19 Sendout Not Detected (Not Detect)
== END ==
PROVIDERS: PCP Nurse Practitioner; Visit Provider Physician Assistant
DX: Z11.59 Encounter for screening for other viral diseases (principal)
CPT/HCPCS: 87635

== ENCOUNTER 2019-09-25 08:53 | Day surgery (SDC) | payer MEDICARE, OTHER, SELFPAY ==
[2019-09-24 07:48] VITALS: BMI 35.0
[2019-09-25] VITALS (20 sets, daily range): BP systolic 110–169; BP diastolic 47–75; PULSE 72–122; RESP 16–26; TEMP 36.2–37.2; O2SAT 91–109; BMI 34.9
--- NOTE | 2019-09-25 | PATH_ITS ---
[facility] Accession Number: [id number] . 01 Material submitted: . gallbladder - GALLBLADDER AND CONTENTS . 02 Diagnosis: Gallbladder and Contents, Cholecystectomy: Chronic cholecystitis, cholesterolosis, and cholelithiasis. MRV 09/27/2019 1045 Local . 02 Electronically signed: . Beverly Whitehead MD, Pathologist NPI- [id number] . 01 Gross description: . Received in formalin, labeled with the patient's name, MRN and gallbladder and contents, is a 4.8 x 2.7 x 1.5 cm previously opened gallbladder. The serosal surface is green-matamoros and smooth. The specimen is opened to reveal green-brown viscous bile admixed with multiple calculi ranging in size from 0.2 cm to 0.6 cm in greatest dimension. The mucosal surface is matamoros-brown with yellow stippling. The gallbladder wall measures up to 0.3 cm in thickness. No lymph nodes are identified. No gross abnormalities are identified. The cystic duct region (inked blue), and a hr representative section of the gallbladder body and gallbladder fundus are submitted in cassette A1. (SD/[id number]) /MRV 09/26/2019 1156 Local . 02 Pathologist provided ICD-10: K80.60, K81.1 . 02 CPT . 751868 Performed at: 01 [facility] [place] [address] [facility], [place], [place] [id number] MD Heraclio James MD Phone: [phone] Performed at: 02 [facility] [place] [address] [place], [place] [id number] MD Inna Weller MD Phone: [phone]
[2019-09-25] MEDS: Non-Formulary Medication (Indocyanine 25 MG) 25 EACH IV (09:28)
[2019-09-25] MEDS: LACTATED RINGERS 1,000 ML 42 ML IV ×3 (09:33→13:59)
--- NOTE | 2019-09-25 10:07 | PM.PREOP ---
Pre-operative Note COVID-19 COVID-19 status: Negative Result date/Date tested (Pos, Neg/Pending): 09/22/19 Interval Note History & Physical reviewed/Exam performed by Physician: Yes Changes to H&P: No
[2019-09-25] MEDS: CIPROFLOXACIN 400 MG/200 ML PIGGYBACK 200 MG IV (10:27)
--- NOTE | 2019-09-25 10:52 | SUR.OPER ---
Supine on padded OR bed, head on pillow, arms secured on padded arm boards at <90 degrees abduction, legs uncrossed, safety belt at thigh, tape over blanket over lower legs.
[2019-09-25] MEDS: BUPIVACAINE 0.25% W/ EPI 30 ML VIAL INJ (11:00)
[2019-09-25] MEDS: fentaNYL 100 MCG/2 ML INJ IV ×4 (12:10→12:36)
--- NOTE | 2019-09-25 12:11 | PM.OP.1 ---
Operative Date/Time/Diagnoses Date of procedure: 09/25/19 Time of procedure: 12:11 Pre-op diagnosis: Symptomatic cholelithiasis Post-op diagnosis: other (Symptomatic cholelthiasis, Chronic cholecystitis) Procedure & Clinicians Procedure: Laparoscopic cholecystectomy Same procedure as scheduled: Yes Indications: Symptomatic cholelithiasis Surgeon: Radha Stanton Click Yes if Unassisted: Yes Anesthesia Type: General Operative Notes Findings: Thickened gallbladder with evidence of chronic inflammation and gallstones Specimen(s): other (Gallbladder) Estimated Blood Loss (mL): 5 Procedure in detail: The patient was brought into the operating room and placed supine on the OR table. Sequential compression devices were placed on both legs and turned on. Appropriate perioperative antibiotics were given prior to the start of surgery. General anesthesia was induced the patient was intubated. The abdomen was prepped and draped in sterile fashion. Surgical time-out was conducted. Local anesthetic was injected under the skin just superior to the umbilicus and a 5 mm vertical incision was made at this site. The umbilical stalk was grasped with a Shane and elevated. A Veress needle was passed through the fascia into proper position. The position was tested with a saline drop test which was appropriate for intra-abdominal Veress needle placement. The abdomen was then insufflated in the usual fashion. Once insufflated to 15 mm Hg the Veress needle was removed and a 5 mm optical trocar was placed under direct vision using a 5 mm 30 degree scope. Once the camera was inside the abdomen I took a look around. There was no injury from port placement. Two additional ports were placed in a similar fashion in the right upper quadrant and a 10 mm port was placed in the epigastrium. Through the 2 lateral ports the gallbladder was grasped and elevated and the infundibulum was retracted laterally to the patient's right. The gallbladder was folded over, and covered with dense fatty inflammatory tissue, making it difficult to access the gallbladder hilum safely. I used a laparoscopic needle to drain the gallbladder, which to helped with exposure. The gallbladder was folded down to the patient's right, in an odd orientation on the liver. As we grasped the gallbladder to lift it up, it pulled away from its attachments to the liver in the gallbladder fossa, causing some raw surface bleeding on the gallbladder fossa. There was some minor oozing of blood which was controlled with Surgicel. There was quite a bit of dense scar tissue throughout the gallbladder hilum. This required tedious careful dissection to avoid injury to the bile ducts. Once the cystic duct and artery were completely dissected out and I was able to see liver behind and between both structures without any other structures in the way, giving us the critical view of safety. At this point I doubly clipped both structures on the patient's side and put a single clip on the gallbladder side of both the cystic duct and artery. Both structures were then divided with laparoscopic Donnell. Following this the gallbladder was found to be attached to the liver only a few remaining bands of scar tissue. The scar tissue was divided, and the gallbladder was freed from the liver. It was placed inside an Endo-Catch bag and removed through the epigastric port site. I [did not] have to enlarge the epigastric site in order to get the gallbladder out. Once it was out and passed off to the back table I then took another look inside the abdomen. I suctioned clean any remaining blood or fluid on the lateral side of the liver and in the subhepatic space. The gallbladder fossa was raw, and 2 Surgicel were placed on its surface. I used cautery to help stop some of the raw surface bleeding, and the Surgicel were removed. There was no further oozing of blood. At this point there was no further bleeding and no leaking of bile from the gallbladder fossa or from the clipped stumps of the cystic duct and artery. At this point the epigastric port site was closed with a Clemente Yeung device using 0 Vicryl suture in the fascia. Insufflation was removed from the abdomen and the epigastric port site was then closed with 3 O Vicryl in the subcutaneous layers, and 4 Monocryl in the skin. The remaining port sites were closed with 4-0 Monocryl in the skin. Each port site was sealed with Dermabond. Local anesthetic was given at each of the port sites and in the fascia. This concluded the procedure. At this point the needle sponge and instrument counts were correct. The gallbladder was passed off the table for pathology. Patient was awakened from anesthesia and extubated. She was transferred to the postanesthesia care unit in stable condition. Complications: none Post-operative Condition: stable Disposition: PACU
[2019-09-25] MEDS: ONDANSETRON 4 MG/2 ML INJ IV ×2 (12:20→14:13)
[2019-09-25] MEDS: METOCLOPRAMIDE 10 MG/2 ML INJ IV (12:58)
--- NOTE | 2019-09-25 13:22 | SUR.PHASEI ---
Pt having issues with nausea and dry heaving, called into OR to speak with anesthiologist and Reglan order received
--- NOTE | 2019-09-25 14:27 | SUR.PHASEII ---
Pt received to Phase II at 1350. Report from HILTON Darby. Pt denies pain. C/O slight nausea. Abdominal sites x4 D/I. Pt with incontinence. Pericare given and linens changed. Pain up to 5/10 with movement. Pt allowed to rest. Ice pack applied. Nausea increased. Cool cloth applied and Zofran given at 1413. Pain down to 3/10 with rest. 1420 - Dr Stanton at bedside. Pt will be admitted overnight for nausea and pain control.
--- NOTE | 2019-09-25 15:46 | SUR.PHASEII ---
Report called to HILTON Contreras. Transferred to [facility]. Received in room by HILTON Contreras. Pt's at bedside. Remains nauseated. Belongings with pt.
[2019-09-25] MEDS: LACTATED RINGERS 1,000 ML 100 ML IV (16:22)
[2019-09-25] MEDS: PANTOPRAZOLE 40 MG VIAL 20 MG IV (20:58)
[2019-09-26] VITALS: BP 150/68; PULSE 106; RESP 16; TEMP 37; O2SAT 99
[2019-09-26] MEDS: LACTATED RINGERS 1,000 ML 100 ML IV (02:53)
[2019-09-26 03:30] VITALS: BP 158/66; PULSE 106; RESP 16; TEMP 36.6; O2SAT 100
[2019-09-26] MEDS: ONDANSETRON 4 MG/2 ML INJ IV (03:41)
--- NOTE | 2019-09-26 04:24 | PC.NURSE ---
Denies any pain, but C/O nausea. Also noted that both of her BUE is very tremulous. Rechecked her CBG 155, pt. reported I'm little anxious. Medicated with 4 mg. of Zofran IVP slowly. Will continue POC & monitor.
[2019-09-26] MEDS: HYDROCODONE/ACET 5/325 TABLET 1 TAB PO (06:45)
[2019-09-26] MEDS: INSULIN GLARGINE 100 UNIT/ML 3ML PEN 40 UNIT SUBCUT (08:40)
[2019-09-26] MEDS: PANTOPRAZOLE 40 MG VIAL 20 MG IV (08:41)
[2019-09-26] MEDS: AMLODIPINE 5 MG TABLET 10 MG PO (08:41)
[2019-09-26 09:00] VITALS: BP 163/79; PULSE 99; RESP 15; TEMP 36.5; O2SAT 97
--- NOTE | 2019-09-26 10:02 | PC.NURSE ---
Addendum entered by Raul Qureshi R.N. 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 Prescriptions sent in electronically to [facility] in [place]. Patient has no further questions or concerns. Discharged to home with her . Original Note: Discharge instructions and home care handouts reviewed with patient and her . They state understanding and have no further questions or concerns at this time. IV dc;d intact. Dermabond to 4 abdominal lap sites are CDI, well approximated without redness or drainage. Patient tolerating diet. Voiding without difficulty. Patient states Dr. Stanton is setting up a follow up appointment for her and will follow up with her PCP as needed.
--- NOTE | 2019-09-26 11:09 | CM.DANOTE ---
DCP; Case received, EMR reviewed and met with patient. Introduced self and role. , Haile, was also present in room. Was able to obtain information from patient regarding her baseline activity status prior to surgery. DCP assessment completed with information currently available. Patient is a 73 year old female who admitted yesterday morning to the care of the surgical team. PCP: Barbara CASTILLO. Payer: confirmed: Medicare/[employer]. Patient came to the hospital via private vehicle for a surgical procedure. She had a lap cholecystectomy. Ptient had procedure yesterday. Met with patient in her room. She was sitting up by her window seat with her , Haile. She stated, she's feeling better today, and is hopeful to go home. She resides in [place] with her spouse. She is independent with activities. P: Patient is to be discharged home today with no needs. Noris Mcekon RN/Certified Art Therapist
== END 2019-09-26 10:10 | disposition home or self-care (01) ==
LOC: OR 08:58 → AC 15:35
PROVIDERS: PCP Nurse Practitioner; Referring Provider Nurse Practitioner; Visit Provider Surgery
PROC: 0FT44ZZ Resection of Gallbladder, Percutaneous Endoscopic Approach (ICD-10-PCS; CPT 47562; principal; 2019-09-25 10:15)
DX: K80.10 Calculus of gallbladder with chronic cholecystitis without obstruction (principal); E66.9 Obesity, unspecified; I10 Essential (primary) hypertension; E11.9 Type 2 diabetes mellitus without complications; J45.909 Unspecified asthma, uncomplicated; K21.9 Gastro-esophageal reflux disease without esophagitis; Z79.4 Long term (current) use of insulin
CPT/HCPCS: 47562; 82962; A9270; C9113; J0330; J0744; J1100; J2405; J2704; J2765; J3010

== ENCOUNTER 2019-10-24 16:05 | Emergency (ER) | payer MEDICARE, OTHER, SELFPAY ==
[2019-09-25 17:00] VITALS: BMI 34.9
[2019-10-24] VITALS (10 sets, daily range): BP systolic 147–171; BP diastolic 61–78; PULSE 99–113; RESP 13–40; TEMP 37.1; O2SAT 97–99; BMI 34.5
[2019-10-24 16:39] LABS: Add Manual Diff / Slide Review NO; Basophils Absolute Auto 100 /uL (0-100); Basophils Percent Auto 0.8 % (0-2); Eosinophils Absolute Auto 200 /uL (0-450); Eosinophils Percent Auto 1.9 % (2-4); Hematocrit 40.9 % (36-46); Hemoglobin 13.5 g/dL (12.0-16.0); Lymphocytes Absolute Auto 2600 /uL (1100-4500); Lymphocytes Percent Auto 29.3 % (25-40); Mean Corpuscular HGB Conc 33.1 % (30-36); Mean Corpuscular Hemoglobin 29.3 PG (26-34); Mean Corpuscular Volume 88.6 fL (80-100); Monocytes Absolute Auto 500 /uL (0-900); Neutrophils Absolute Auto 5400 /uL (1500-7000); Platelet Count 304 X10^3/uL (150-400); Red Blood Cell Count 4.61 X10^6/uL (4.0-5.2); Red Cell Distribution Width 13.9 % (11.6-14.8); White Blood Cell Count 8.8 X10^3/uL (4.5-11.0)
[2019-10-24 16:56] LABS: Prothrombin Time 11.4 SECONDS (10.1-12.7)
[2019-10-24 16:58] LABS: PTT Partial Thromboplastin Tim 31 SECONDS (26.4-36.2)
--- NOTE | 2019-10-24 17:02 | DI.US.S_ITS ---
PROCEDURE: US ABDOMEN LIMITED INDICATIONS: Right upper quadrant pain, gallbladder removed subsequent to the most recent comparison at the end of August this year. TECHNIQUE: Real-time focused scanning was performed of the abdomen, with image documentation. COMPARISON: [facility], , US ABDOMEN COMPLETE, 09/04/2019, 14:33. FINDINGS: The liver is normal in craniocaudad length and a right hepatic lobe cyst measuring up to 3.2 cm is again seen. The gallbladder is absent. Bile ducts are not distended. The common duct measures up to 4.3 mm, normal. Pancreas appears normal. A definite source of new pain is not identified. IMPRESSION: Interval cholecystectomy, stable appearing cyst within the right hepatic lobe measuring up to 3.2 cm in maximal dimension. A source of new pain is not found. Dictated by: Denis Saelh M.D. on 10/24/2019 at 18:53 Approved by: Denis Saleh M.D. on 10/24/2019 at 18:55
[2019-10-24 17:04] LABS: Alanine Aminotransferase 34 IU/L (<35); Albumin 4.5 g/dL (3.5-5.0); Albumin Globulin Ratio 1.2 (1.0-2.8); Alkaline Phosphatase 120 U/L (38-126); Aspartate Aminotransferase 54 IU/L (14-36); BUN Creatinine Ratio 18.9 (6-22); Bilirubin Total 0.6 mg/dL (0.2-1.3); Blood Urea Nitrogen 17 mg/dL (7-17); Calcium 9.4 mg/dL (8.4-10.2); Carbon Dioxide 25 mmol/L (22-32); Chloride 104 mmol/L (98-107); Estimated Glomerular Filt Rate > 60.0 mL/min (>60); Globulin 3.7 g/dL (1.7-4.1); Glucose 124 mg/dL (80-110); HEMOLYSIS < 15 (0-50); Lipase 90 U/L (23-300); Potassium 4.1 mmol/L (3.4-5.1); Sodium 139 mmol/L (137-145); Total Protein 8.2 g/dL (6.3-8.2)
--- NOTE | 2019-10-24 17:07 | ED_ITS ---
HPI - Abdominal Pain <Keeley David, DO - Last Filed: 10/25/19 07:18> General Chief Complaint: Abdominal Pain Stated Complaint: gallbladder pain s/p surgery Time Seen by Provider: 10/24/19 17:02 Source: patient Mode of arrival: Ambulatory Limitations: no limitations History of Present Illness HPI narrative: Patient is a 74-year-old female who presents with abdominal pain. He is status post lap choly 09/25/2019. She was seen for routine follow-up with surgery today. She started having abdominal pain this morning. She said yesterday she felt like she had to have a bowel movement and was unable to do so. She feels nauseous at times but she does not throw up. She actually has umbilical like abdominal pain it does not radiate. She denies any chest pain. She does complain of increased shortness of breath with exertion. This has been ongoing since she left the hospital. She has asthma she uses her albuterol inhaler it seems to improve with that. Also with increased smoke in the air her breathing and also gotten worse also improved with albuterol. MD complaint: abdominal pain Onset (ago): hour(s) Pain Consistency: intermittent Location: periumbilical Related Data Home Medications Medication Instructions Recorded Confirmed esomeprazole magnesium 40 mg 40 mg PO DAILY PRN 10/23/17 10/24/19 capsule,delayed release fluticasone propionate 110 1 puff INHALATION ONCE PRN gram 05/30/18 10/24/19 mcg/actuation HFA aerosol inhaler bromaline 500 mg PO BID 09/04/19 10/24/19 grape seed extract 500 mg PO BID 09/04/19 10/24/19 polyethylene glycol 3350 17 17 gram PO BID 09/04/19 10/24/19 gram/dose oral powder Previous Rx's Medication Instructions Recorded albuterol sulfate 90 mcg/actuation 2 puff INHALATION Q4-6H PRN #18 02/01/18 aerosol inhaler gram Lancets UltraFine 30g #100 each 11/13/18 Precision Xtra Test Strips #100 each 11/13/18 pen needle, diabetic 33 gauge x #180 each 11/13/18 5/16 benzonatate 100 mg capsule 100 mg PO TID PRN #90 cap 04/19/19 cyclobenzaprine 10 mg tablet 10 mg PO TID PRN #14 tab 04/19/19 lisinopril 40 mg tablet 40 mg PO Q DAY #90 tab 04/19/19 ondansetron 4 mg disintegrating See Rx Instructions PO Q8H PRN #30 06/24/19 tablet tab insulin glargine 100 unit/mL (3 40 unit SUBCUT BID 90 Days #72 ml 09/04/19 mL) subcutaneous pen amlodipine 5 mg tablet 10 mg PO DAILY #180 tab 09/13/19 docusate sodium 100 mg PO BID #20 cap 09/25/19 hydrocodone-acetaminophen 1 tab PO Q4-6H PRN #30 tab 09/25/19 ondansetron 4 mg PO Q6H PRN #10 tab 09/25/19 Allergies Allergy/AdvReac Type Severity Reaction Status Date / Time acetaminophen [ACETAMINOPHEN] AdvReac Severe Gastrointestinal Verified 10/24/19 15:46 Upset amoxicillin [From Augmentin] AdvReac Severe Nausea, Verified 10/24/19 15:46 Vomiting, Diarrhea clavulanic acid AdvReac Severe Nausea, Verified 10/24/19 15:46 [From Augmentin] Vomiting, Diarrhea oxycodone [OXYCODONE] AdvReac Severe (PERCOCET) Verified 10/24/19 15:46 CONVULSION hydrochlorothiazide AdvReac Mild nausea Verified 10/24/19 15:46 Review of Systems <DO Amaury Garcia Last Filed: 10/25/19 07:18> Review of Systems Narrative: GENERAL: Denies chills, fatigue, malaise, fever, sweats, travel HEENT: Denies sinus pain, ear pain, sore throat, difficulty swallowing, neck pain RESPIRATORY: Denies dyspnea, cough, wheezing, hemoptysis, sputum. CARDIOVASCULAR: Denies chest pain, palpitations, orthopnea, edema GASTROINTESTINAL: See HPI : Denies dysuria, frequency, incontinence, hematuria, urinary retention, flank pain. MUSCULOSKELETAL: Denies weakness, joint pain, or bony pain SKIN: No rash, no erythema, no pruritus NEUROLOGIC: Denies weakness, dizziness, headache, numbness, change in speech, confusion PSYCHIATRIC: No concerning psychosocial issues. 12 point review of systems is negative except for those stated above and HPI Patient History <DO Amaury Garcia Filed: 10/25/19 07:18> Medical History Abdominal tenderness (Acute) Allergy (Chronic Unknown) Altered bowel habits (Acute) Asthma (Chronic Unknown) Back pain (Resolved Unknown) Bloating (Acute) Colon polyps (Resolved Unknown) Controlled type 2 diabetes mellitus without complication (Chronic 10/21/10) Diabetes (Chronic Unknown) Diverticulosis (Chronic Unknown) Elevated LFTs (Acute) Essential hypertension (Chronic) Eye abnormalities (Acute ~1987) Gallbladder sludge (Acute) Hyperlipidemia associated with type 2 diabetes mellitus (Acute) Hypertension (Chronic Unknown) Macromastia (Resolved Unknown) Mild intermittent asthma with acute exacerbation (Chronic 06/01/10) Obesity (Chronic) 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 Social History marital status: household members: spouse occupational status: previously employed Smoking Status: Former smoker second hand exposure: Yes alcohol intake: current substance use type: does not use Smoking Status: Former smoker alcohol intake frequency: 0-2 drinks per day Substance Use Type: does not use Exam <Keeley Hernandez DO - Last Filed: 10/25/19 07:18> Initial Vital Signs Initial Vital Signs: Vital Signs Temperature 98.7 F 10/24/19 16:14 Pulse Rate 105 H 10/24/19 16:14 Respiratory Rate 18 10/24/19 16:14 Blood Pressure 154/78 H 10/24/19 16:14 Pulse Oximetry 97 10/24/19 16:14 GENERAL: Patient appears uncomfortable and in no acute distress. HEENT: Head atraumatic,EOMI, pupils reactive, face symmetric, moist mucous membranes CARDIOVASCULAR: Regular rate and rhythm without murmurs, rubs or gallops. RESPIRATORY: Breath sounds equal bilaterally, no wheezes rales or rhonchi. ABDOMEN: Soft, tender over. Umbilical area mild right upper quadrant pain no guarding or rebound EXTREMITIES: Normal range of motion, no clubbing or edema. Neurovascularly intact NEUROLOGICAL: Alert and oriented x4.Normal gait and speech. SKIN: Warm, dry, no laceration, no petechiae, no rashes or lesions. <Kodi Chew DO - Last Filed: 10/24/19 20:47> Initial Vital Signs Initial Vital Signs: Vital Signs Temperature 98.7 F 10/24/19 16:14 Pulse Rate 105 H 10/24/19 16:14 Respiratory Rate 18 10/24/19 16:14 Blood Pressure 154/78 H 10/24/19 16:14 Pulse Oximetry 97 10/24/19 16:14 Course <Keeley Hernandez DO - Last Filed: 10/25/19 07:18> Orders Ordered: Discontinued Medications Ketorolac Tromethamine (Toradol) 30 mg IV NOW ONE Stop: 10/24/19 17:15 Last Admin: 10/24/19 17:21 Dose: 30 mg Documented by: TORIE Morphine Sulfate (Morphine) 2 mg IV NOW ONE Stop: 10/24/19 19:25 Last Admin: 10/24/19 19:27 Dose: 2 mg Documented by: TORIE Ondansetron HCl (Zofran) 4 mg IV NOW ONE Stop: 10/24/19 17:15 Last Admin: 10/24/19 17:21 Dose: 4 mg Documented by: TORIE Vital Signs Vital signs: Vital Signs - 8 hr 10/24/19 16:14 10/24/19 17:04 10/24/19 17:30 Temperature 98.7 F Pulse Rate 105 H 99 H 106 H Respiratory Rate 18 18 21 Blood Pressure 154/78 H 161/72 H Pulse Oximetry 97 99 99 10/24/19 18:00 10/24/19 18:30 10/24/19 19:00 Temperature Pulse Rate 101 H 108 H Respiratory Rate 20 30 H Blood Pressure 159/69 H 171/72 H Pulse Oximetry 99 99 10/24/19 19:01 10/24/19 19:30 10/24/19 20:00 Temperature Pulse Rate 113 H 107 H 99 H Respiratory Rate 40 H 25 H 13 Blood Pressure 148/61 H 152/68 H 147/66 H Pulse Oximetry 99 99 99 <Kodi Chew DO - Last Filed: 10/24/19 20:47> Orders Ordered: Discontinued Medications Ketorolac Tromethamine (Toradol) 30 mg IV NOW ONE Stop: 10/24/19 17:15 Last Admin: 10/24/19 17:21 Dose: 30 mg Documented by: TORIE Morphine Sulfate (Morphine) 2 mg IV NOW ONE Stop: 10/24/19 19:25 Last Admin: 10/24/19 19:27 Dose: 2 mg Documented by: TORIE Ondansetron HCl (Zofran) 4 mg IV NOW ONE Stop: 10/24/19 17:15 Last Admin: 10/24/19 17:21 Dose: 4 mg Documented by: TORIE Vital Signs Vital signs: Vital Signs - 8 hr 10/24/19 16:14 10/24/19 17:04 10/24/19 17:30 Temperature 98.7 F Pulse Rate 105 H 99 H 106 H Respiratory Rate 18 18 21 Blood Pressure 154/78 H 161/72 H Pulse Oximetry 97 99 99 10/24/19 18:00 10/24/19 18:30 10/24/19 19:00 Temperature Pulse Rate 101 H 108 H Respiratory Rate 20 30 H Blood Pressure 159/69 H 171/72 H Pulse Oximetry 99 99 10/24/19 19:01 10/24/19 19:30 10/24/19 20:00 Temperature Pulse Rate 113 H 107 H 99 H Respiratory Rate 40 H 25 H 13 Blood Pressure 148/61 H 152/68 H 147/66 H Pulse Oximetry 99 99 99 MDM - Abdominal Pain <Keeley Hernandez DO - Last Filed: 10/25/19 07:18> Lab Data Attestation: I reviewed the patient's lab results. Result diagrams: 10/24/19 16:30 10/24/19 16:30 Labs: Lab Results 10/24/19 10/24/19 10/24/19 Range/Units 16:30 16:30 16:30 WBC 8.8 (4.5-11.0) X10^3/uL RBC 4.61 (4.0-5.2) X10^6/uL Hgb 13.5 (12.0-16.0) g/dL Hct 40.9 (36-46) % MCV 88.6 (80-100) fL MCH 29.3 (26-34) PG MCHC 33.1 (30-36) % RDW 13.9 (11.6-14.8) % Plt Count 304 (150-400) X10^3/uL Neut % (Auto) 62.0 (50-75) % Lymph % (Auto) 29.3 (25-40) % [place] % (Auto) 6.0 (3-14) % Eos % (Auto) 1.9 L (2-4) % Baso % (Auto) 0.8 (0-2) % Neut # (Auto) 5400 (9826-8388) /uL Lymph # (Auto) 2600 (2971-6825) /uL [place] # (Auto) 500 (0-900) /uL Eos # (Auto) 200 (0-450) /uL Baso # (Auto) 100 (0-100) /uL PT 11.4 (10.1-12.7) SECONDS INR 1.0 (0.9-1.3) APTT 31 (26.4-36.2) SECONDS D-Dimer (<230) ng/mL Sodium 139 (137-145) mmol/L Potassium 4.1 (3.4-5.1) mmol/L Chloride 104 (98-107) mmol/L Carbon Dioxide 25 (22-32) mmol/L BUN 17 (7-17) mg/dL Creatinine 0.90 (0.52-1.04) mg/dL Estimated GFR > 60.0 (>60) mL/min BUN/Creatinine Ratio 18.9 (6-22) Glucose 124 H (80-110) mg/dL Calcium 9.4 (8.4-10.2) mg/dL Total Bilirubin 0.6 (0.2-1.3) mg/dL AST 54 H (14-36) IU/L ALT 34 (<35) IU/L Alkaline Phosphatase 120 (38-126) U/L Total Protein 8.2 (6.3-8.2) g/dL Albumin 4.5 (3.5-5.0) g/dL Globulin 3.7 (1.7-4.1) g/dL Albumin/Globulin Ratio 1.2 (1.0-2.8) Lipase 90 (23-300) U/L /17/20 Range/Units 16:30 WBC (4.5-11.0) X10^3/uL RBC (4.0-5.2) X10^6/uL Hgb (12.0-16.0) g/dL Hct (36-46) % MCV (80-100) fL MCH (26-34) PG MCHC (30-36) % RDW (11.6-14.8) % Plt Count (150-400) X10^3/uL Neut % (Auto) (50-75) % Lymph % (Auto) (25-40) % [place] % (Auto) (3-14) % Eos % (Auto) (2-4) % Baso % (Auto) (0-2) % Neut # (Auto) (0780-5508) /uL Lymph # (Auto) (0468-2624) /uL [place] # (Auto) (0-900) /uL Eos # (Auto) (0-450) /uL Baso # (Auto) (0-100) /uL PT (10.1-12.7) SECONDS INR (0.9-1.3) APTT (26.4-36.2) SECONDS D-Dimer 243 H (<230) ng/mL Sodium (137-145) mmol/L Potassium (3.4-5.1) mmol/L Chloride (98-107) mmol/L Carbon Dioxide (22-32) mmol/L BUN (7-17) mg/dL Creatinine (0.52-1.04) mg/dL Estimated GFR (>60) mL/min BUN/Creatinine Ratio (6-22) Glucose (80-110) mg/dL Calcium (8.4-10.2) mg/dL Total Bilirubin (0.2-1.3) mg/dL AST (14-36) IU/L ALT (<35) IU/L Alkaline Phosphatase (38-126) U/L Total Protein (6.3-8.2) g/dL Albumin (3.5-5.0) g/dL Globulin (1.7-4.1) g/dL Albumin/Globulin Ratio (1.0-2.8) Lipase (23-300) U/L Point of care testing: Urine Dip Bedside Urine Glucose 100 mg/dl Bedside Urine Bilirubin + 1 Bedside Urine Ketone +/- 5 Urine Specific [place] 1.025 Bedside Urine Occult Blood - Negative Bedside Urine pH 6.0 Bedside Urine Protein +/- 15 Bedside Urine Urobilinogen +/- 1mg Bedside Urine Nitrite - Negative Bedside Urine Leukocytes - Negative Esterase MDM Narrative Medical decision making narrative: Patient has more periumbilical pain. Ultrasound is negative bilirubin lipase and liver enzymes are also negative. Patient feels like she has have a bowel movement but cannot have a bowel movement. Now complains of at this back pain. Will get CT to rule out any abdominal source. Patient's D-dimer is low and her symptoms improved with albuterol this time I think PE is highly unlikely. Awaiting CT abdomen Signed out to Dr. Chew <Kodi Chew, DO - Last Filed: 10/24/19 20:47> Lab Data Labs: Lab Results 10/24/19 10/24/19 10/24/19 Range/Units 16:30 16:30 16:30 WBC 8.8 (4.5-11.0) X10^3/uL RBC 4.61 (4.0-5.2) X10^6/uL Hgb 13.5 (12.0-16.0) g/dL Hct 40.9 (36-46) % MCV 88.6 (80-100) fL MCH 29.3 (26-34) PG MCHC 33.1 (30-36) % RDW 13.9 (11.6-14.8) % Plt Count 304 (150-400) X10^3/uL Neut % (Auto) 62.0 (50-75) % Lymph % (Auto) 29.3 (25-40) % [place] % (Auto) 6.0 (3-14) % Eos % (Auto) 1.9 L (2-4) % Baso % (Auto) 0.8 (0-2) % Neut # (Auto) 5400 (1599-8185) /uL Lymph # (Auto) 2600 (9533-4500) /uL [place] # (Auto) 500 (0-900) /uL Eos # (Auto) 200 (0-450) /uL Baso # (Auto) 100 (0-100) /uL PT 11.4 (10.1-12.7) SECONDS INR 1.0 (0.9-1.3) APTT 31 (26.4-36.2) SECONDS D-Dimer (<230) ng/mL Sodium 139 (137-145) mmol/L Potassium 4.1 (3.4-5.1) mmol/L Chloride 104 (98-107) mmol/L Carbon Dioxide 25 (22-32) mmol/L BUN 17 (7-17) mg/dL Creatinine 0.90 (0.52-1.04) mg/dL Estimated GFR > 60.0 (>60) mL/min BUN/Creatinine Ratio 18.9 (6-22) Glucose 124 H (80-110) mg/dL Calcium 9.4 (8.4-10.2) mg/dL Total Bilirubin 0.6 (0.2-1.3) mg/dL AST 54 H (14-36) IU/L ALT 34 (<35) IU/L Alkaline Phosphatase 120 (38-126) U/L Total Protein 8.2 (6.3-8.2) g/dL Albumin 4.5 (3.5-5.0) g/dL Globulin 3.7 (1.7-4.1) g/dL Albumin/Globulin Ratio 1.2 (1.0-2.8) Lipase 90 (23-300) U/L 10/24/19 Range/Units 16:30 WBC (4.5-11.0) X10^3/uL RBC (4.0-5.2) X10^6/uL Hgb (12.0-16.0) g/dL Hct (36-46) % MCV (80-100) fL MCH (26-34) PG MCHC (30-36) % RDW (11.6-14.8) % Plt Count (150-400) X10^3/uL Neut % (Auto) (50-75) % Lymph % (Auto) (25-40) % [place] % (Auto) (3-14) % Eos % (Auto) (2-4) % Baso % (Auto) (0-2) % Neut # (Auto) (1618-4314) /uL Lymph # (Auto) (7794-4133) /uL [place] # (Auto) (0-900) /uL Eos # (Auto) (0-450) /uL Baso # (Auto) (0-100) /uL PT (10.1-12.7) SECONDS INR (0.9-1.3) APTT (26.4-36.2) SECONDS D-Dimer 243 H (<230) ng/mL Sodium (137-145) mmol/L Potassium (3.4-5.1) mmol/L Chloride (98-107) mmol/L Carbon Dioxide (22-32) mmol/L BUN (7-17) mg/dL Creatinine (0.52-1.04) mg/dL Estimated GFR (>60) mL/min BUN/Creatinine Ratio (6-22) Glucose (80-110) mg/dL Calcium (8.4-10.2) mg/dL Total Bilirubin (0.2-1.3) mg/dL AST (14-36) IU/L ALT (<35) IU/L Alkaline Phosphatase (38-126) U/L Total Protein (6.3-8.2) g/dL Albumin (3.5-5.0) g/dL Globulin (1.7-4.1) g/dL Albumin/Globulin Ratio (1.0-2.8) Lipase (23-300) U/L Point of care testing: Urine Dip Bedside Urine Glucose 100 mg/dl Bedside Urine Bilirubin + 1 Bedside Urine Ketone +/- 5 Urine Specific [place] 1.025 Bedside Urine Occult Blood - Negative Bedside Urine pH 6.0 Bedside Urine Protein +/- 15 Bedside Urine Urobilinogen +/- 1mg Bedside Urine Nitrite - Negative Bedside Urine Leukocytes - Negative Esterase Imaging Data CT scan - abdomen/pelvis: Radiologist's Impression: [place] [address] CT Scan Report Signed Patient: Cheyenne Adams GMR#: [id number] : 8Acct:[id number] Age/Sex: 74 / FDate of Service: 10/24/19 Loc: ED Accession Number: [id number] Procedure: CT abdomen pelvis w con Ordering Provider: Keeley Hernandez D.O. PROCEDURE: CT ABDOMEN PELVIS W CON INDICATIONS: pain TECHNIQUE: After the administration of intravenous contrast, 5 mm thick sections acquired from the diaphragm to the symphysis. 5 mm coronal and sagittal reformats were acquired. For radiation dose reduction, the following was used: automated exposure control, adjustment of mA and/or kV according to patient size. COMPARISON: [facility], , US ABDOMEN COMPLETE, 09/04/2019, 14:33. FINDINGS: Image quality: Excellent. ABDOMEN: Lung bases: Lung bases are clear. Heart size is normal. Solid organs: Liver is normal in size and enhancement. Right hepatic lobe liver cyst is again noted, simple in appearance and water in density. Gallbladder has been resected . Biliary system is non dilated. Pancreas enhances normally. Spleen is normal in size and enhancement. No adrenal nodules. Kidneys demonstrate normal size and e nhancement, without hydronephrosis. Peritoneum and bowel: Bowel loops demonstrate normal wall thickness and caliber. No free fluid or air. Nodes and vessels: No retroperitoneal or mesenteric adenopathy by size criteria. Aorta and inferior vena cava are normal in size. Miscellaneous: No ventral hernias. PELVIS: Genitourinary: Bladder wall thickness is normal. Miscellaneous: No inguinal hernias or adenopathy. Normal appendix found right lower quadrant. Bones: No suspicious bony lesions. No vertebral body compression fractures. IMPRESSION: No acute disease, no complication from cholecystectomy found. Source of current symptoms is not identified. Dictated by: Denis Saleh M.D. on 10/24/2019 at 20:00 Approved by: Denis Saleh M.D. on 10/24/2019 at 20:02 [facility] Narrative Medical decision making narrative: Dr chew: Received turned over from Dr. Hernandez. Reviewed patient's history and physical. Review patient's labs. Review patient's ultrasound. Pending CT scan which is subsequently unremarkable. Patient has been seen by General surgery here in the ER. Consensus is is that it is unlikely her symptoms today related to her gallbladder removal or retained stone. Unfortunately do not have another specific etiology of the patient's symptoms. This could potentially be a constipation issues the patient states she has been having problems having bowel movements recently. At baseline she has to take 2 doses of MiraLax on a daily basis just to have normal bowel movements. It also appears that she has been taking ibuprofen recently. She has not been taking her PPI on a regular basis. Informed her that she should be taking ibuprofen with food or try to cut this out altogether and start taking her PPI on a regular basis. No further workup needed in the emergency department. Will discharge the patient home never follow-up with her primary provider to discuss the indications for referral to see Gastroenterology. Patient was given return precautions. She expressed understanding and agreement. Discharge Plan Departure Patient Disposition: Home Clinical Impression: Abdominal pain Qualifiers: Abdominal location: generalized Qualified Code(s): R10.84 - Generalized abdominal pain Discharge Date/Time: 10/24/19 20:57 Instructions: DI for Abdominal Pain-Adult Activity Restrictions/Additional Instructions: Continue all of your medications as directed. I do recommend that you contact your primary provider to discuss the indications for referral to see Gastroenterology. Return to the emergency department for any new or worsening symptoms Prescriptions: No Action esomeprazole magnesium [Nexium] 40 mg Capsule,Delayed Release(Dr/Ec) 40 mg PO DAILY PRN (Reason: Reflux) RF: 0 albuterol sulfate 90 mcg/actuation HFA aerosol inhaler 2 puff INHALATION Q4-6H PRN (Reason: shortness of breath or wheezing) Qty: 18 RF: 3 lisinopril 40 mg tablet 40 mg PO Q DAY Qty: 90 RF: 1 cyclobenzaprine 10 mg tablet 10 mg PO TID PRN (Reason: muscle spasm) Qty: 14 RF: 1 benzonatate 100 mg capsule 100 mg PO TID PRN (Reason: cough) Qty: 90 RF: 1 ondansetron 4 mg tablet,disintegrating See Rx Instructions PO Q8H PRN (Reason: nausea and vomiting) Qty: 30 RF: 1 amlodipine 5 mg tablet 10 mg PO DAILY Qty: 180 RF: 3 (DME) Comfort EZ Pen [place] 33 gauge x 5/16 needle See Dose Instructions .ROUTE .MEDSUPPLY Qty: 180 RF: 3 (DME) Precision Xtra Test Strips Qty: 100 RF: 3 (DME) Lancets UltraFine 30g Qty: 100 RF: 3 polyethylene glycol 3350 [Miralax] 17 gram/dose powder 17 gram PO BID RF: 0 bromaline 500 mg PO BID RF: 0 grape seed extract 500 mg PO BID RF: 0 Lantus Solostar U-100 Insulin 100 unit/mL (3 mL) insulin pen 40 unit SUBCUT BID 90 Days Qty: 72 RF: 3 Flovent HFA 110 mcg/actuation HFA aerosol inhaler 1 puff INHALATION ONCE PRN (Reason: SOB) RF: 0 hydrocodone-acetaminophen 7.5-325 mg tablet 1 tab PO Q4-6H PRN (Reason: post operative pain) Qty: 30 RF: 0 docusate sodium 100 mg capsule 100 mg PO BID Qty: 20 RF: 0 ondansetron 4 mg tablet,disintegrating 4 mg PO Q6H PRN (Reason: nausea and vomiting) Qty: 10 RF: 0 Referrals: Barbara Paul ARNP [Primary Care Provider] -
[2019-10-24] MEDS: ONDANSETRON 4 MG/2 ML INJ IV (17:21)
[2019-10-24] MEDS: KETOROLAC 60 MG/2 ML VIAL 30 MG IV (17:21)
[2019-10-24 17:24] LABS: D Dimer 243 ng/mL (<230)
--- NOTE | 2019-10-24 19:24 | DI.CT.S_ITS ---
PROCEDURE: CT ABDOMEN PELVIS W CON INDICATIONS: pain TECHNIQUE: After the administration of intravenous contrast, 5 mm thick sections acquired from the diaphragm to the symphysis. 5 mm coronal and sagittal reformats were acquired. For radiation dose reduction, the following was used: automated exposure control, adjustment of mA and/or kV according to patient size. COMPARISON: [facility], , ABDOMEN COMPLETE, 09/04/2019, 14:33. FINDINGS: Image quality: Excellent. ABDOMEN: Lung bases: Lung bases are clear. Heart size is normal. Solid organs: Liver is normal in size and enhancement. Right hepatic lobe liver cyst is again noted, simple in appearance and water in density. Gallbladder has been resected . Biliary system is non dilated. Pancreas enhances normally. Spleen is normal in size and enhancement. No adrenal nodules. Kidneys demonstrate normal size and enhancement, without hydronephrosis. Peritoneum and bowel: Bowel loops demonstrate normal wall thickness and caliber. No free fluid or air. Nodes and vessels: No retroperitoneal or mesenteric adenopathy by size criteria. Aorta and inferior vena cava are normal in size. Miscellaneous: No ventral hernias. PELVIS: Genitourinary: Bladder wall thickness is normal. Miscellaneous: No inguinal hernias or adenopathy. Normal appendix found right lower quadrant. Bones: No suspicious bony lesions. No vertebral body compression fractures. IMPRESSION: No acute disease, no complication from cholecystectomy found. Source of current symptoms is not identified. Dictated by: Denis Saleh M.D. on 10/24/2019 at 20:00 Approved by: Denis Saleh M.D. on 10/24/2019 at 20:02
[2019-10-24] MEDS: MORPHINE 2 MG/ML INJ IV (19:27)
== END 2019-10-24 20:57 | disposition home or self-care (01) ==
PROVIDERS: Emergency Medicine; Emergency Provider Emergency Medicine; PCP Nurse Practitioner; Referring Provider Surgery
DX: R10.84 Generalized abdominal pain (principal)
CPT/HCPCS: 36415; 74177; 76705; 80053; 81003; 83690; 85025; 85379; 85610; 85730; 93005; 93010; 96374; 96375; 99284; J1885; J2270; J2405; Q9967

== ENCOUNTER → 2019-11-12 13:51 | Outpatient (CLI) | payer MEDICARE, OTHER, SELFPAY ==
[2019-09-25 17:00] VITALS: BMI 34.9
[2019-11-13 20:04] LABS: COVID19 Sendout Not Detected (Not Detect)
== END ==
PROVIDERS: PCP Nurse Practitioner; Visit Provider Physician Assistant
DX: Z11.59 Encounter for screening for other viral diseases (principal)
CPT/HCPCS: 87635

== ENCOUNTER 2019-11-15 09:31 | Day surgery (SDC) | payer MEDICARE, OTHER, SELFPAY ==
[2019-09-25 17:00] VITALS: BMI 34.9
--- NOTE | 2019-11-15 | PATH_ITS ---
[facility] Accession Number: [id number] . 01 Material submitted: . PART A: duodenum - DUODENUM PART B: gastrointestinal site - GASTRIC PART C: esophagus - DISTAL ESOPHAGUS . 02 Diagnosis: A. Duodenum, Biopsy: Duodenal mucosa with no diagnostic abnormality. Negative for active inflammation, features of sprue, dysplasia, or malignancy. . B. Stomach, Biopsy: Gastric antral mucosa with mild chronic inflammation. Negative for Helicobacter organisms by immunohistochemistry. Negative for intestinal metaplasia. Negative for dysplasia or malignancy. . C. Distal Esophagus, Biopsy: Squamocolumnar junctional mucosa with mild chronic inflammation. Negative for specialized intestinal metaplasia on alcian blue stain. Negative for dysplasia or malignancy. [facility] 11/20/2019 1333 Local . 02 Electronically signed: . Jensen Loja MD, PhD, Pathologist NPI- [id number] . 01 Gross description: . A. The specimen is received in formalin, labeled duodenum, and consists of two matamoros-pink fragments of soft tissue measuring 0.4 x 0.3 x 0.2 cm in aggregate. The specimen is entirely submitted in cassette A1. B. The specimen is received in formalin, labeled gastric, and consists of two matamoros-pink fragments of soft tissue measuring 0.3 x 0.2 x 0.2 cm in aggregate. The specimen is entirely submitted in cassette B1. C. The specimen is received in formalin, labeled distal esophagus, and consists of a 0.2 x 0.2 x 0.1 cm matamoros fragment of soft tissue which is entirely submitted in cassette C1. ([id number]) /JOSE 11/16/2019 1424 Local . 02 Microscopic: . B. An immunohistochemical stain was performed to evaluate for Helicobacter organisms and is negative. The control stain showed appropriate reactivity. . C. An alcian blue stain is performed to evaluate for specialized intestinal metaplasia, and is negative for goblet cells. A control stain shows appropriate reactivity. . . . * This test was developed and its performance characteristics determined by [employer]. It has not been cleared or approved by the U.S. Food and Drug Administration. The FDA has determined that such clearance or approval is not necessary. This test is used for clinical purposes. It should not be regarded as investigational or for research. . 02 Pathologist provided ICD-10: R10.13, K29.70, K20.80 . 02 CPT . 980439, 959299, 730812, E08160, 042233 Performed at: 01 [facility] [address] [facility], [place], [place] [id number] MD Heraclio James MD Phone: [phone] Performed at: [address] [facility] [address] [place], [place] [id number] MD Inna Weller MD Phone: [phone]
[2019-11-15 09:53] VITALS: BMI 34.4
[2019-11-15 09:59] VITALS: BP 148/79; PULSE 107; RESP 18; TEMP 36.7; O2SAT 100
[2019-11-15] MEDS: SODIUM CHLORIDE 0.9% 1,000 ML 200 ML IV (10:16)
--- NOTE | 2019-11-15 11:10 | PM.PREOP ---
Pre-operative Note COVID-19 COVID-19 status: Negative Result date/Date tested (Pos, Neg/Pending): 11/12/19 Interval Note History & Physical reviewed/Exam performed by Physician: Yes Changes to H&P: No
[2019-11-15] MEDS: ONDANSETRON 4 MG/2 ML INJ IV (11:11)
--- NOTE | 2019-11-15 11:11 | PM.OP.ENDO ---
Operative Date/Time/Diagnoses Date of procedure: 11/15/19 Time of procedure: 11:11 Pre-op diagnosis: epigastric pain Procedure & Clinicians Study performed: EGD Procedural sedation performed by the endoscopist Biopsies of duodenum, stomach, distal esophagus with cold forceps Same procedure as scheduled: Yes Indications: Epigastric pain Surgeon: Radha Stanton Procedure Notes SCOAP/Timeout: Performed Procedure in detail: The patient was brought to the room and placed in left lateral decubitus position with all bony prominences padded. A bite block was positioned in the patient's mouth to protect the lips, teeth, and tongue for the procedure. A time-out was performed and then the patient was given procedural sedation starting with 4 mg of Versed and 100 mcg of fentanyl. Total of 10 mg of Versed and 100 micro g of fentanyl were given for the entire procedure. Vitals were monitored throughout the procedure and remained stable. Once adequately sedated, the procedure was begun. The lubricated gastroscope was passed through the bite block and across the tongue and into the esophagus without incident. A tubular view of the esophagus was maintained as the scope was advanced through the esophagus and into the stomach. The scope was advanced through the stomach and to the pylorus. The scope was gently popped through the pylorus and into the duodenal bulb. The scope was flexed and advanced into the second and third portions of the duodenum. The duodenum and duodenal bulb appeared normal. Biopsies were taken to rule out H pylori. The scope was withdrawn into the stomach. Moderate endoscopic gastritis was seen in the stomach, with no active bleeding or exposed vessels. Biopsies were taken with cold forceps. The scope was retroflexed and the gastric cardia was examined. There was a Hill grade 2 hiatal hernia in the esophagus. No ulcerations were seen. The scope was then straightened, and withdrawn into the esophagus. There was a small tongue of gastric mucosa extending up into the esophagus, for about 1 cm. The Z-line otherwise appeared normal. The distal esophagus otherwise appeared normal. The scope was then withdrawn through the esophagus with a tubular view. The scope was then withdrawn from the patient the procedure was concluded. The patient tolerated the procedure well and was transferred to the PACU in stable condition. Sedation minutes: 11 Findings: gastritis and hiatal hernia (Low-grade) Specimen(s): other (Biopsies of duodenum, stomach, distal esophagus) Complications: none Impression: Gastritis Post-procedure Recommendations: Other recommendation (Will contact the patient with biopsy results, and follow-up endoscopy will depend on the biopsy findings.) Follow up: weeks Disposition: PACU
[2019-11-15] MEDS: fentaNYL 250 MCG/5 ML INJ IV (11:16)
[2019-11-15] MEDS: MIDAZOLAM 5 MG/5 ML VIAL IV (11:16)
[2019-11-15 11:32] VITALS: BP 132/73; PULSE 103; RESP 23; TEMP 36.2; O2SAT 97
--- NOTE | 2019-11-15 11:32 | SUR.OPER ---
pt required multiple staff members to help position and guide through the procedure
[2019-11-15 11:37] VITALS: BP 113/62; PULSE 96; RESP 24; O2SAT 92
[2019-11-15 11:41] VITALS: BP 121/75; PULSE 109; RESP 18; O2SAT 99
[2019-11-15 11:47] VITALS: BP 120/70; PULSE 100; RESP 28; O2SAT 96
[2019-11-15 12:05] VITALS: BP 129/78; PULSE 100; RESP 21; O2SAT 98
== END 2019-11-15 12:17 | disposition home or self-care (01) ==
PROVIDERS: PCP Nurse Practitioner; Referring Provider Surgery; Visit Provider Surgery
PROC: 0DJ08ZZ Inspection of Upper Intestinal Tract, Via Natural or Artificial Opening Endoscopic (ICD-10-PCS; CPT 43235; principal; 2019-11-15 10:45)
DX: K29.50 Unspecified chronic gastritis without bleeding (principal); E11.9 Type 2 diabetes mellitus without complications; Z79.4 Long term (current) use of insulin; I10 Essential (primary) hypertension; K44.9 Diaphragmatic hernia without obstruction or gangrene; K20.90 Esophagitis, unspecified without bleeding
CPT/HCPCS: 43239; 99152; J2250; J2405; J3010

== ENCOUNTER → 2020-07-13 11:46 | Outpatient (CLI) | payer MEDICARE, OTHER, SELFPAY ==
[2019-09-25 17:00] VITALS: BMI 34.9
--- NOTE | 2020-07-13 11:48 | DI.MG.S_ITS ---
BILATERAL DIGITAL DIAGNOSTIC MAMMOGRAM 3D/2D: 07/13/2020 CLINICAL: Short follow up, due bilateral. Comparison is made to exams dated: 09/18/2019 mammogram, 03/05/2019 mammogram, 08/07/2018 mammogram, and 02/14/2018 mammogram - [facility]. There are scattered fibroglandular elements in both breasts. There is a biopsy site marker in the right breast 3:00 middle depth. There are stable, grouped coarse and amorphous calcifications in the right breast in the posterior depth in the upper inner quadrant. Minimal progression, and no developing underlying asymmetry. No significant masses, calcifications, or other findings are seen in either breast. IMPRESSION: BENIGN Calcifications in the right breast have been shown to be progression of fat necrosis without development of suspicious features for 2 years. Return to annual mammogram screening schedule is recommended. Findings and recommendations were conveyed to the patient at time of exam. This exam was interpreted at Station ID: [id number]. NOTE: For mammograms, a report in lay terms will be sent to the patient. Approximately 15% of breast malignancies will not be visualized mammographically. In the management of a palpable breast mass, a negative mammogram must not discourage biopsy of a clinically suspicious lesion. Electronically Signed By: Kelly ramires/:07/13/2020 12:49:41 letter sent: Normal Exam ACR BI-RADS Category 2: Benign Finding(s) 3342F
== END ==
PROVIDERS: PCP Nurse Practitioner; Referring Provider Nurse Practitioner; Visit Provider Nurse Practitioner
DX: R92.8 Other abnormal and inconclusive findings on diagnostic imaging of breast (principal)
CPT/HCPCS: 77066; G0279

== ENCOUNTER → 2020-07-29 08:43 | Outpatient (CLI) | payer MEDICARE, OTHER, SELFPAY ==
[2020-07-22 16:59] VITALS: BMI 34.9
[2020-07-29 09:27] LABS: Hemoglobin A1C% w Est Avg Glu 5.8 % (4.0-6.0)
[2020-07-29 09:49] LABS: BUN Creatinine Ratio 26.3 (6-22); Blood Urea Nitrogen 20 mg/dL (7-17); Calcium 9.4 mg/dL (8.4-10.2); Carbon Dioxide 27 mmol/L (22-32); Chloride 106 mmol/L (98-107); Cholesterol 175 mg/dL (140-199); Estimated Glomerular Filt Rate > 60.0 mL/min (>60); Glucose 118 mg/dL (80-110); HDL Cholesterol 47 mg/dL (40-60); HEMOLYSIS < 15 (0-50); LDL Cholesterol Calculated 108 mg/dL (<100); Potassium 4.2 mmol/L (3.4-5.1); Sodium 141 mmol/L (137-145); Triglycerides 100 mg/dL (35-150)
== END ==
PROVIDERS: PCP Nurse Practitioner; Referring Provider Nurse Practitioner; Visit Provider Nurse Practitioner
DX: E11.69 Type 2 diabetes mellitus with other specified complication (principal); E66.9 Obesity, unspecified; E78.5 Hyperlipidemia, unspecified; I10 Essential (primary) hypertension; Z79.4 Long term (current) use of insulin
CPT/HCPCS: 36415; 80048; 80061; 83036

== ENCOUNTER → 2020-11-06 09:11 | Outpatient (CLI) | payer MEDICARE, OTHER, SELFPAY ==
[2020-07-22 16:59] VITALS: BMI 34.9
[2020-11-06 10:34] LABS: Alanine Aminotransferase 19 IU/L (<35); Albumin 4.1 g/dL (3.5-5.0); Albumin Globulin Ratio 1.3 (1.0-2.8); Alkaline Phosphatase 87 U/L (38-126); Aspartate Aminotransferase 35 IU/L (14-36); BUN Creatinine Ratio 24.3 (6-22); Bilirubin Total 0.6 mg/dL (0.2-1.3); Blood Urea Nitrogen 17 mg/dL (7-17); Calcium 9.5 mg/dL (8.4-10.2); Carbon Dioxide 32 mmol/L (22-32); Chloride 107 mmol/L (98-107); Cholesterol 179 mg/dL (140-199); Estimated Glomerular Filt Rate > 60.0 mL/min (>60); Globulin 3.1 g/dL (1.7-4.1); Glucose 92 mg/dL (80-110); HDL Cholesterol 45 mg/dL (40-60); HEMOLYSIS < 15 (0-50); LDL Cholesterol Calculated 113 mg/dL (<100); Potassium 4.2 mmol/L (3.4-5.1); Sodium 144 mmol/L (137-145); Total Protein 7.2 g/dL (6.3-8.2); Triglycerides 105 mg/dL (35-150)
== END ==
PROVIDERS: PCP Nurse Practitioner; Referring Provider Nurse Practitioner; Visit Provider Nurse Practitioner
DX: E11.69 Type 2 diabetes mellitus with other specified complication (principal); E78.5 Hyperlipidemia, unspecified; I10 Essential (primary) hypertension; Z79.4 Long term (current) use of insulin; Z79.899 Other long term (current) drug therapy
CPT/HCPCS: 36415; 80053; 80061; 83036

== ENCOUNTER → 2020-12-15 15:31 | Outpatient (CLI) | payer MEDICARE, OTHER, SELFPAY ==
[2020-07-22 16:59] VITALS: BMI 34.9
[2020-12-15 16:20] LABS: Add Manual Diff / Slide Review NO; Basophils Absolute Auto 0 /uL (0-100); Basophils Percent Auto 0.4 % (0-2); Eosinophils Absolute Auto 200 /uL (0-450); Eosinophils Percent Auto 2.1 % (2-4); Hematocrit 39.9 % (36-46); Lymphocytes Absolute Auto 3300 /uL (1100-4500); Lymphocytes Percent Auto 41.4 % (25-40); Mean Corpuscular HGB Conc 32.7 % (30-36); Mean Corpuscular Hemoglobin 28.8 PG (26-34); Mean Corpuscular Volume 88.2 fL (80-100); Monocytes Absolute Auto 400 /uL (0-900); Monocytes Percent Auto 5.1 % (3-14); Neutrophils Absolute Auto 4100 /uL (1500-7000); Platelet Count 288 X10^3/uL (150-400); Red Blood Cell Count 4.52 X10^6/uL (4.0-5.2); Red Cell Distribution Width 14.4 % (11.6-14.8)
[2020-12-15 17:34] LABS: Alanine Aminotransferase 15 IU/L (<35); Albumin 4.3 g/dL (3.5-5.0); Albumin Globulin Ratio 1.4 (1.0-2.8); Alkaline Phosphatase 76 U/L (38-126); Aspartate Aminotransferase 31 IU/L (14-36); BUN Creatinine Ratio 16.2 (6-22); Bilirubin Total 0.5 mg/dL (0.2-1.3); Blood Urea Nitrogen 12 mg/dL (7-17); Calcium 9.9 mg/dL (8.4-10.2); Carbon Dioxide 25 mmol/L (22-32); Chloride 107 mmol/L (98-107); Estimated Glomerular Filt Rate > 60.0 mL/min (>60); Glucose 78 mg/dL (80-110); HEMOLYSIS < 15 (0-50); Potassium 3.9 mmol/L (3.4-5.1); Sodium 143 mmol/L (137-145); Total Protein 7.3 g/dL (6.3-8.2)
== END ==
PROVIDERS: PCP Nurse Practitioner; Referring Provider Surgery; Visit Provider Surgery
DX: R10.30 Lower abdominal pain, unspecified (principal)
CPT/HCPCS: 36415; 80053; 85025; 99215

== ENCOUNTER → 2020-12-21 12:08 | Outpatient (CLI) | payer MEDICARE, OTHER, SELFPAY ==
[2020-07-22 16:59] VITALS: BMI 34.9
--- NOTE | 2020-12-21 12:30 | DI.CT.S_ITS ---
PROCEDURE: CT ABDOMEN PELVIS W CON INDICATIONS: Abdominal pain TECHNIQUE: After the administration of oral and intravenous contrast, axial sections were acquired from the lung bases to the pubic symphysis. Coronal and sagittal reformats were performed. For radiation dose reduction, the following was used: automated exposure control, adjustment of mA and/or kV according to patient size. COMPARISON:[facility], CT, CT ABDOMEN PELVIS W CON, 10/24/2019, 19:40. FINDINGS: ABDOMEN: Lung bases: No acute findings. Heart: No pericardial effusion. Normal in size. Liver: Presumed multiple water attenuation cysts for example in the right hepatic lobe measuring 3.0 cm and no interval change. Subcentimeter hepatic foci are statistically cysts or hemangiomas, although technically too small to characterize accurately and therefore nonspecific. Mild hepatic steatosis. Gallbladder: Surgically absent Bile ducts: Normal. Pancreas: Normal. Spleen: Normal. Adrenals: Normal. Kidneys and Ureters: Normal. Stomach and duodenum: Normal. Bowel: Normal appendix. No evidence of bowel obstruction. Incidentally noted scattered colonic diverticula. There is moderate stool. Other: No free fluid or air. Abdominal nodes: Normal. Aorta and IVC: Normal in size. Scattered atheromatous calcifications in the aorta. Ventral wall: Mild subcutaneous inflammatory stranding in the anterior abdominal wall on image 72/3. PELVIS: Bladder and reproductive: Bladder is partially decompressed otherwise unremarkable. Inguinal region: No hernia. Pelvic nodes: Normal. Bones: No suspicious bony lesions. No vertebral body compression fractures. Diffuse spondylytic changes and facet disease. IMPRESSION: No acute abnormality identified. Status post cholecystectomy Normal appearance of the appendix Mild inflammatory changes within the anterior abdominal wall subcutaneous fat in keeping with cellulitis although grossly unchanged since 10/24/19. Additional chronic and incidental findings as above. Dictated by: Agus Umana M.D. on 12/29/2020 at 11:54 Approved by: Agus Umana M.D. on 12/29/2020 at 11:58
== END ==
PROVIDERS: PCP Nurse Practitioner; Referring Provider Surgery; Visit Provider Surgery
DX: L03.311 Cellulitis of abdominal wall (principal); K57.90 Diverticulosis of intestine, part unspecified, without perforation or abscess without bleeding; R10.9 Unspecified abdominal pain; K76.89 Other specified diseases of liver; K76.0 Fatty (change of) liver, not elsewhere classified; I70.0 Atherosclerosis of aorta; Z90.49 Acquired absence of other specified parts of digestive tract
CPT/HCPCS: 74177

== ENCOUNTER → 2021-07-01 10:20 | Outpatient (CLI) | payer MEDICARE, OTHER, SELFPAY ==
[2020-07-22 16:59] VITALS: BMI 34.9
== END ==
PROVIDERS: PCP Nurse Practitioner; Referring Provider Nurse Practitioner; Visit Provider Nurse Practitioner
DX: Z13.820 Encounter for screening for osteoporosis (principal); Z78.0 Asymptomatic menopausal state
CPT/HCPCS: 77080

== ENCOUNTER → 2021-08-17 08:37 | Outpatient (CLI) | payer MEDICARE, OTHER, SELFPAY ==
[2021-08-11 09:39] VITALS: BMI 34.9
[2021-08-17 10:51] LABS: Microalbumin Urine Random 5.9 mg/dL (0-1.6)
[2021-08-17 11:07] LABS: Alanine Aminotransferase 15 IU/L (<35); Albumin 4.4 g/dL (3.5-5.0); Albumin Globulin Ratio 1.4 (1.0-2.8); Alkaline Phosphatase 76 U/L (38-126); Aspartate Aminotransferase 32 IU/L (14-36); BUN Creatinine Ratio 17.3 (6-22); Bilirubin Total 0.8 mg/dL (0.2-1.3); Blood Urea Nitrogen 17 mg/dL (7-17); Calcium 9.3 mg/dL (8.4-10.2); Carbon Dioxide 25 mmol/L (22-32); Chloride 104 mmol/L (98-107); Cholesterol 175 mg/dL (140-199); Estimated Glomerular Filt Rate > 60 mL/min (>60); Globulin 3.2 g/dL (1.7-4.1); Glucose 82 mg/dL (80-110); HDL Cholesterol 41 mg/dL (40-60); HEMOLYSIS < 15 (0-50); LDL Cholesterol Calculated 110 mg/dL (<100); Potassium 5.3 mmol/L (3.4-5.1); Sodium 140 mmol/L (137-145); Total Protein 7.6 g/dL (6.3-8.2); Triglycerides 118 mg/dL (35-150)
[2021-08-17 11:26] LABS: Free T3, Triiodothyronine Free 3.95 pg/mL (2.77-5.27)
[2021-08-17 11:39] LABS: Thyroid Stimulating Hormone 2.84 uIU/mL (0.47-4.68)
[2021-08-17 11:56] LABS: Hemoglobin A1C% w Est Avg Glu 6.1 % (4.0-6.0)
[2021-08-17 15:36] LABS: Creatinine Urine Random 347.1 mg/dL; Microalbumi Creatinin Ratio Ur 16.9 ug/mg CR (<30)
[2021-08-18 07:39] LABS: Fecal Immunochemical Test Negative (Negative)
== END ==
PROVIDERS: PCP Nurse Practitioner; Referring Provider Nurse Practitioner; Visit Provider Nurse Practitioner
DX: E11.69 Type 2 diabetes mellitus with other specified complication (principal); E78.5 Hyperlipidemia, unspecified; Z79.4 Long term (current) use of insulin; Z12.11 Encounter for screening for malignant neoplasm of colon; Z79.899 Other long term (current) drug therapy; I10 Essential (primary) hypertension
CPT/HCPCS: 36415; 80053; 80061; 82043; 82274; 82570; 83036; 84439; 84443; 84481

== ENCOUNTER → 2021-09-20 11:22 | Outpatient (CLI) | payer MEDICARE, OTHER, SELFPAY ==
[2021-08-11 09:39] VITALS: BMI 34.9
--- NOTE | 2021-09-20 11:24 | DI.MG.S_ITS ---
BILATERAL DIGITAL SCREENING MAMMOGRAM 3D/2D WITH CAD: 09/20/2021 CLINICAL: Routine screening. Comparison is made to exams dated: 07/13/2020 mammogram, 09/18/2019 mammogram, 03/05/2019 mammogram, 08/07/2018 mammogram, 02/14/2018 mammogram, and 01/25/2018 mammogram - [facility]. The tissue of both breasts is predominantly fatty. Current study was also evaluated with a Computer Aided Detection (CAD) system. There is a benign calcification in the right breast. There also is a biopsy clip in the right breast. No significant masses, calcifications, or other findings are seen in either breast. There has been no significant interval change. IMPRESSION: BENIGN There is no mammographic evidence of malignancy. A 1 year screening mammogram is recommended. Based on the Tyrer Cuzick model (a risk assessment model) the patient's lifetime risk is 1.5% and her 10 year risk is 1.3%. According to the ACR, ACS, and NCCN guidelines, an annual breast MRI exam along with mammogram is recommended if the patient's lifetime risk is 20% or greater. This exam was interpreted at Station ID: [id number]. NOTE: For mammograms, a report in lay terms will be sent to the patient. Approximately 15% of breast malignancies will not be visualized mammographically. In the management of a palpable breast mass, a negative mammogram must not discourage biopsy of a clinically suspicious lesion. Electronically Signed By: Russell huff/adrianne:09/20/2021 12:41:27 letter sent: Normal Exam ACR BI-RADS Category 2: Benign Finding(s) 3342F
== END ==
PROVIDERS: PCP Nurse Practitioner; Referring Provider Nurse Practitioner; Visit Provider Nurse Practitioner
DX: Z12.31 Encounter for screening mammogram for malignant neoplasm of breast (principal); J45.21 Mild intermittent asthma with (acute) exacerbation; E11.69 Type 2 diabetes mellitus with other specified complication; E78.5 Hyperlipidemia, unspecified
CPT/HCPCS: 77063; 77067; 93005; 93010

== ENCOUNTER → 2021-09-29 14:21 | Outpatient (CLI) | payer MEDICARE, OTHER, SELFPAY ==
[2021-08-11 09:39] VITALS: BMI 34.9
--- NOTE | 2021-09-29 14:23 | DI.ECHO.S_ITS ---
[facility]---------+ [facility] +---------+ : : [address] : : : : [id number] : : : : Phone: [phone]+ Echocardiogram Report + + :Name: CHRIS VINSON Study Date: 09/29/2021 Height: 63 in : :[facility] ReadingLocation: Weight: 182 lb : : Gender: Female BSA: 1.9 m2 : :: 1945 Age: 75 yrs BP: 157/91 mmHg: :Reason For Study: HYPERTENSION : :Ordering Physician: MARGARITA, : :ROSEANN Performed By: Trinity Centeno : :Referring: ROSEANN AVILA : + + Interpretation Summary The left ventricular cavity is small. The left ventricle is hyperdynamic. Left ventricular ejection fraction is estimated to be 70 +/- 5%. No significant LV outflow tract or intracavitary obstruction seen. The right ventricle is grossly normal size. The right ventricular systolic function is normal. No significant valvular pathology seen. There is an echogenic ill-defined shadow seen in the lumen of the aortic arch which could be an artifact however moderate to large atherosclerotic plaque cannot be ruled out. Correlate clinically. Consider BRITTNEY for further evaluation. Procedure: A two-dimensional transthoracic echocardiogram with color flow and Doppler was performed. The study quality was technically difficult. There is no prior echocardiogram noted for this patient. The patient was in sinus rhythm with heart rates between 88-105 bpm during the exam. Left Ventricle: The left ventricular cavity is small. There is normal left ventricular wall thickness. The left ventricle is hyperdynamic. Left ventricular ejection fraction is estimated to be 70 +/- 5%. There are no focal wall motion abnormalities. MV E/A: 0.70 Med Peak E' John: 6.3 cm/sec E/E' med: 15.4. Right Ventricle: The right ventricle is grossly normal size. The right ventricular systolic function is normal. Atria: Both atria are normal in size. There is no Doppler evidence for an interatrial shunt. Mitral Valve: There is mild to moderate mitral annular calcification. No significant mitral valve stenosis. There is trace mitral regurgitation. Aortic Valve: The aortic valve opens well. There is mild aortic valve sclerosis. There is no aortic valve stenosis. Increased aortic valve velocity and LV outflow tract velocity due to hyperdynamic LV. No aortic regurgitation is present. Tricuspid Valve: The tricuspid valve is not well visualized, but is grossly normal. There is trace tricuspid regurgitation. Pulmonary artery pressures cannot be estimated because of the lack of a measurable TR jet velocity. Pulmonic Valve: The pulmonic valve is not well visualized. There is trace pulmonic regurgitation. Great Vessels: The aortic root is normal size. The dimensions of the ascending aorta are normal. There is an echogenic ill-defined shadow seen in the lumen of the aortic arch which could be an artifact however moderate to large atherosclerotic plaque cannot be ruled out. Correlate clinically. Consider BRITTNEY for further evaluation. The inferior vena cava was not well visualized. Pericardium/ Pleura There is no pericardial effusion. There is no pleural effusion. MMode/2D Measurements & Calculations LVIDd: 3.4 cm LVOT diam: 2.0 cm LVIDs: 2.4 cm Ao root diam: 2.7 cm FS: 29.3 % asc Aorta Diam: 3.1 cm IVSd: 0.92 cm Ao Arch Diam (Prox Trans): 2.9 cm LVPWd: 0.84 cm LV nguyen. diameter/BSA (cm/m^2): 1.8 LV sys. diameter/BSA (cm/m^2): 1.3 LA A2 area: 16.8 cm2 RA long axis: 4.5 cm LA A4 area: 14.2 cm2 RA area: 11.1 cm2 LA length (vol): 4.9 cm RA vol: 23.5 ml LA vol: 40.9 ml RA : 12.6 ml/m2 LA vol index: 22.0 ml/m2 TAPSE: 2.0 cm Doppler Measurements & Calculations Ao V2 max: 209.3 cm/sec LVOT Max John: 129.9 cm/sec Ao V2 mean: 136.1 cm/sec LV V1 max P.8 mmHg Ao max P.5 mmHg LV V1 VTI: 25.0 cm Ao mean P.6 mmHg ISAK(I,D): 1.9 cm2 Ao V2 VTI: 39.1 cm ISAK(V,D): 1.9 cm2 sev ratio: 0.64 ISAK indexed to BSA (cm^2/m^2): 1.0 MV E max john: 97.1 cm/sec PA V2 max: 99.3 cm/sec MV A max john: 138.9 cm/sec PA V2 mean: 73.6 cm/sec MV E/A: 0.70 PA mean P.4 mmHg Med Peak E' John: 6.3 cm/sec PA pr(Accel): 49.9 mmHg E/E' med: 15.4 Lat Peak E' John: 6.9 cm/sec E/E' lat: 14.0 E/e' average: 14.7 MV dec time: 0.32 sec SV(LVOT): 75.0 ml Reading Physician:04:21 PM
== END ==
PROVIDERS: PCP Nurse Practitioner; Referring Provider Nurse Practitioner; Visit Provider Nurse Practitioner
DX: I10 Essential (primary) hypertension (principal)
CPT/HCPCS: 93306

== ENCOUNTER → 2022-03-30 09:31 | Outpatient (CLI) | payer MEDICARE, OTHER, SELFPAY ==
[2022-02-21 10:37] VITALS: BMI 34.9
[2022-03-30 10:19] LABS: Add Manual Diff / Slide Review NO; Basophils Absolute Auto 100 /uL (0-100); Basophils Percent Auto 0.7 % (0-2); Eosinophils Absolute Auto 200 /uL (0-450); Eosinophils Percent Auto 1.6 % (2-4); Hematocrit 42.5 % (36-46); Hemoglobin 13.9 g/dL (12.0-16.0); Lymphocytes Absolute Auto 2900 /uL (1100-4500); Lymphocytes Percent Auto 28.9 % (25-40); Mean Corpuscular HGB Conc 32.7 % (30-36); Mean Corpuscular Hemoglobin 28.7 PG (26-34); Monocytes Absolute Auto 600 /uL (0-900); Monocytes Percent Auto 5.9 % (3-14); Neutrophils Absolute Auto 6300 /uL (1500-7000); Neutrophils Percent Auto 62.9 % (50-75); Platelet Count 352 X10^3/uL (150-400); Red Blood Cell Count 4.82 X10^6/uL (4.0-5.2); Red Cell Distribution Width 14.1 % (11.6-14.8)
[2022-03-30 10:34] LABS: Hemoglobin A1C% w Est Avg Glu 6.2 % (4.0-6.0)
[2022-03-30 10:43] LABS: Alanine Aminotransferase 20 IU/L (<35); Albumin 4.7 g/dL (3.5-5.0); Albumin Globulin Ratio 1.3 (1.0-2.8); Alkaline Phosphatase 98 U/L (38-126); Aspartate Aminotransferase 34 IU/L (14-36); BUN Creatinine Ratio 20.2 (6-22); Bilirubin Total 0.8 mg/dL (0.2-1.3); Blood Urea Nitrogen 20 mg/dL (7-17); Calcium 9.7 mg/dL (8.4-10.2); Carbon Dioxide 24 mmol/L (22-32); Chloride 103 mmol/L (98-107); Cholesterol 135 mg/dL (140-199); Estimated Glomerular Filt Rate 60 mL/min (>60); Globulin 3.6 g/dL (1.7-4.1); Glucose 113 mg/dL (80-110); HDL Cholesterol 45 mg/dL (40-60); HEMOLYSIS < 15 (0-50); LDL Cholesterol Calculated 74 mg/dL (<100); Potassium 4.1 mmol/L (3.4-5.1); Sodium 141 mmol/L (137-145); Total Protein 8.3 g/dL (6.3-8.2); Triglycerides 79 mg/dL (35-150)
[2022-03-30 10:56] LABS: Free T3, Triiodothyronine Free 4.23 pg/mL (2.77-5.27); Free T4, Direct Thyroxine 1.45 ng/dL (0.78-2.19)
[2022-03-30 11:09] LABS: Thyroid Stimulating Hormone 4.22 uIU/mL (0.47-4.68)
[2022-03-30 16:23] LABS: Creatinine Urine Random 141.7 mg/dL
[2022-03-30 16:24] LABS: Microalbumi Creatinin Ratio Ur 329.5 ug/mg CR (<30); Microalbumin Urine Random 46.7 mg/dL (0-1.6)
[2022-03-31 17:08] LABS: Hep C Virus Ab w/Reflex Quant NEGATIVE s/c (NEGATIVE)
== END ==
PROVIDERS: PCP Nurse Practitioner; Referring Provider Nurse Practitioner; Visit Provider Nurse Practitioner
DX: E11.69 Type 2 diabetes mellitus with other specified complication (principal); E78.5 Hyperlipidemia, unspecified; I10 Essential (primary) hypertension; Z79.4 Long term (current) use of insulin; Z79.899 Other long term (current) drug therapy; Z11.59 Encounter for screening for other viral diseases
CPT/HCPCS: 36415; 80053; 80061; 82043; 82570; 83036; 84439; 84443; 84481; 85025; 86803

== ENCOUNTER → 2022-05-16 11:39 | Outpatient (CLI) | payer MEDICARE, OTHER, SELFPAY ==
[2022-02-21 10:37] VITALS: BMI 34.9
[2022-05-16 12:15] LABS: Appearance Urine UA CLEAR; Bilirubin Urine UA NEGATIVE (NEGATIVE); Color Urine UA YELLOW; Glucose Urine UA NEGATIVE (Negative); Ketones Urine UA NEGATIVE (NEGATIVE); Leukocyte Esterase Urine UA 1+ (NEGATIVE); Nitrite Urine UA NEGATIVE (Negative); Occult Blood Urine UA NEGATIVE (Negative); Protein Urine UA NEGATIVE (Negative); Urobilinogen Urine UA 0.2 E.U./dL (0.2)
[2022-05-16 12:16] LABS: pH Urine UA 5.5 (4.5-8.0)
[2022-05-16 12:18] LABS: Bacteria Urine None Seen; Culture Indicated Urine Specimen Cultured; RBC Urine None Seen (0-5/HPF); Squamous Epithelial Cell Urine 1-5 /HPF (0-5/HPF); WBC Urine 5-10/HPF (0-5/HPF)
== END ==
PROVIDERS: PCP Nurse Practitioner; Referring Provider Nurse Practitioner; Visit Provider Nurse Practitioner
DX: R30.0 Dysuria (principal)
CPT/HCPCS: 81001; 87077; 87086; 87186

== ENCOUNTER → 2022-10-26 13:05 | Outpatient (CLI) | payer MEDICARE, OTHER, SELFPAY ==
[2022-02-21 10:37] VITALS: BMI 34.9
--- NOTE | 2022-10-26 13:06 | DI.MG.S_ITS ---
BILATERAL DIGITAL SCREENING MAMMOGRAM 3D/2D WITH CAD: 10/26/2022 CLINICAL: Routine screening. Comparison is made to exams dated: 09/20/2021 mammogram, 07/13/2020 mammogram, 03/05/2019 mammogram, and 09/18/2019 mammogram - [facility]. There are scattered areas of fibroglandular density in both breasts (category b / 25%-50% glandular tissue). Current study was also evaluated with a Computer Aided Detection (CAD) system. There is a benign calcification in the right breast. There also is a biopsy clip in the right breast. No significant masses, calcifications, or other findings are seen in either breast. There has been no significant interval change. IMPRESSION: BENIGN There is no mammographic evidence of malignancy. A 1 year screening mammogram is recommended. Based on the Tyrer Cuzick model (a risk assessment model) the patient's lifetime risk is 2.0% and her 10 year risk is 2.0%. According to the ACR, ACS, and NCCN guidelines, an annual breast MRI exam along with mammogram is recommended if the patient's lifetime risk is 20% or greater. This exam was interpreted at Station ID: [id number]. NOTE: For mammograms, a report in lay terms will be sent to the patient. Approximately 15% of breast malignancies will not be visualized mammographically. In the management of a palpable breast mass, a negative mammogram must not discourage biopsy of a clinically suspicious lesion. Electronically Signed By: Gaurav singh/adrianne:10/26/2022 14:32:46 letter sent: Normal Exam ACR BI-RADS Category 2: Benign Finding(s) 3342F
== END ==
PROVIDERS: PCP Nurse Practitioner; Referring Provider Nurse Practitioner; Visit Provider Nurse Practitioner
DX: Z12.31 Encounter for screening mammogram for malignant neoplasm of breast (principal)
CPT/HCPCS: 77063; 77067

== ENCOUNTER → 2022-11-29 08:48 | Outpatient (CLI) | payer MEDICARE, OTHER, SELFPAY ==
[2022-02-21 10:37] VITALS: BMI 34.9
[2022-11-29 10:23] LABS: Alanine Aminotransferase 20 IU/L (<35); Albumin 4.4 g/dL (3.5-5.0); Albumin Globulin Ratio 1.3 (1.0-2.8); Alkaline Phosphatase 88 U/L (38-126); Aspartate Aminotransferase 36 IU/L (14-36); Bilirubin Total 0.7 mg/dL (0.2-1.3); Blood Urea Nitrogen 20 mg/dL (7-17); Calcium 9.8 mg/dL (8.4-10.2); Carbon Dioxide 24 mmol/L (22-32); Chloride 104 mmol/L (98-107); Estimated Glomerular Filt Rate 59 mL/min (>60); Globulin 3.3 g/dL (1.7-4.1); Glucose 98 mg/dL (80-110); HEMOLYSIS < 15 (0-50); Sodium 141 mmol/L (137-145); Total Protein 7.7 g/dL (6.3-8.2)
[2022-11-29 10:44] LABS: Microalbumin Urine Random 1.6 mg/dL (0-1.6)
[2022-11-29 10:58] LABS: Creatinine Urine Random > 346.5 mg/dL
[2022-12-08 11:20] LABS: Hemoglobin A1C% w Est Avg Glu 5.7 % (4.0-6.0)
== END ==
PROVIDERS: PCP Nurse Practitioner; Referring Provider Nurse Practitioner; Visit Provider Nurse Practitioner
DX: E11.9 Type 2 diabetes mellitus without complications (principal); E11.69 Type 2 diabetes mellitus with other specified complication; I10 Essential (primary) hypertension; E78.5 Hyperlipidemia, unspecified; R10.9 Unspecified abdominal pain; E11.40 Type 2 diabetes mellitus with diabetic neuropathy, unspecified; K31.84 Gastroparesis; Z12.11 Encounter for screening for malignant neoplasm of colon
CPT/HCPCS: 36415; 80053; 82043; 82570; 83036

== ENCOUNTER → 2022-12-05 13:01 | Outpatient (CLI) | payer MEDICARE, OTHER, SELFPAY ==
[2022-02-21 10:37] VITALS: BMI 34.9
[2022-12-06 15:47] LABS: Fecal Immunochemical Test Positive (Negative)
== END ==
PROVIDERS: PCP Nurse Practitioner; Referring Provider Nurse Practitioner; Visit Provider Nurse Practitioner
DX: Z12.11 Encounter for screening for malignant neoplasm of colon (principal)
CPT/HCPCS: 82274

== ENCOUNTER → 2022-12-08 08:51 | Outpatient (CLI) | payer MEDICARE, OTHER, SELFPAY ==
[2022-02-21 10:37] VITALS: BMI 34.9
[2022-12-08 11:28] LABS: Cholesterol 115 mg/dL (140-199); HDL Cholesterol 52 mg/dL (40-60); LDL Cholesterol Calculated 50 mg/dL (<100); Triglycerides 66 mg/dL (35-150)
== END ==
PROVIDERS: PCP Nurse Practitioner; Referring Provider Internal Medicine Cardiovascular Disease; Visit Provider Internal Medicine Cardiovascular Disease
DX: I70.90 Unspecified atherosclerosis (principal)
CPT/HCPCS: 36415; 80061

== ENCOUNTER 2022-12-13 06:09 | Emergency (ER) | payer MEDICARE, OTHER, SELFPAY ==
[2022-02-21 10:37] VITALS: BMI 34.9
[2022-12-13] VITALS (12 sets, daily range): BP systolic 131–196; BP diastolic 60–82; PULSE 91–122; RESP 13–29; TEMP 36.4–36.5; O2SAT 95–98; BMI 33.1
--- NOTE | 2022-12-13 06:38 | DI.CT.S_ITS ---
PROCEDURE: CT ANGIO ABD/PEL GI BLEED INDICATIONS: GI bleed TECHNIQUE: After the administration of intravenous contrast, 2.5 mm thick sections acquired from the diaphragm to the symphysis. 10 mm maximum-intensity projection (MIP) reformats were then acquired. For radiation dose reduction, the following was used: automated exposure control. COMPARISON: [facility], CT, CT ABDOMEN PELVIS W CON, 12/21/2020, 12:57. FINDINGS: Image quality: Excellent. Aorta: Normal caliber. No aneurysm or dissection. Mesenteric arteries: Celiac trunk, superior and inferior mesenteric arteries appear patent. Right pelvic arteries: Patent Left pelvic arteries: Patent Extravascular soft tissues: Lung bases are clear. Heart size is normal. Liver is normal in size and enhancement. Liver cysts. No solid masses. Gallbladder is surgically absent . Biliary system is non dilated. Pancreas enhances normally. Spleen is normal in size and enhancement. No adrenal nodules. Kidneys are normal in size and enhancement, without hydronephrosis. There is radiodense material present in the cecum which may potentially represent small amount of clotted blood, or can potentially represent hyperdense ingested material. There is also a tiny hyperdensity in the distal rectum which may potentially represent a hemorrhoid. The colon from the level of the proximal descending colon through the rectum has a mildly diffusely thickened wall. It is decompressed. Suspect distal colitis. The appendix is present and fluid-filled without abnormal distention or inflammatory change surrounding the appendix. No free fluid or air. No retroperitoneal or mesenteric adenopathy. No ventral hernias. No suspicious bony lesions. No vertebral body compression fractures. Uterus is surgically absent. There is a degree of pelvic floor relaxation. Lumbar degenerative change. IMPRESSION: 1. There is either at a small amount of clot in the cecum or hyperdense ingested material. 2. Suspect probable rectal hemorrhoid period 3. Findings consistent with distal colitis involving the descending colon, sigmoid colon, and rectum. Consider inflammatory versus infectious colitis. 4. Remote cholecystectomy and hysterectomy. 5. There is a degree of pelvic floor relaxation. Dictated by: Milad Munoz M.D. on 12/13/2022 at 8:16 Approved by: Milad Munoz M.D. on 12/13/2022 at 8:26
--- NOTE | 2022-12-13 06:52 | ED_ITS ---
HPI - GI Bleed <Keeley Hernandez, DO - Last Filed: 12/13/22 23:24> General Chief complaint: Abdominal Pain Stated complaint: bleeding since fri Time Seen by Provider: 12/13/22 06:38 Source: patient and family Mode of arrival: Ambulatory History of Present Illness HPI Narrative: Patient 77-year-old female history of diabetes hypertension hyperlipidemia gastroparesis presenting today with rectal bleeding. She started prepping for colonoscopy last night. She has been having bright red rectal bleeding for the last 5-6 days. She is not on antiplatelet or anticoagulation medication. She reports that last night she is was passing small clots she got very dizzy lightheaded sounds like she may have passed out a couple of times EMS was called she was not transported at the time. However she is continuing to have severe abdominal pain. She feels shaky she sometimes a little dizzy. She is history of colon polyps. She kindly showed me pictures of the blood clots she passed in the toilet they are smaller than palm size. Related Data Home Medications Medication Instructions Recorded Confirmed ibuprofen 200 mg capsule 200 mg PO BID PRN Pain (Scale 08/05/20 12/13/22 Score 4-6) Saccharomyces boulardii 250 mg 5,000 mmu cells PO DAILY 11/18/21 12/13/22 capsule (Digest Probiotic (S.boulardii)) atorvastatin 10 mg tablet 5 mg PO BEDTIME 11/24/21 12/13/22 metoclopramide HCl 10 mg tablet 10 mg PO 3XD 12/05/22 12/13/22 amitriptyline 10 mg tablet 10 mg PO ONCE PM 12/13/22 12/13/22 Previous Rx's Medication Instructions Recorded Lancets UltraFine 30g #100 ea 11/13/18 albuterol sulfate 90 mcg/actuation 2 puff inhalation Q4-6H PRN 11/26/19 aerosol inhaler shortness of breath or wheezing #18 grams Precision Xtra Test Strips #100 ea 10/27/20 docusate sodium 100 mg capsule 100 mg PO BID PRN constipation #90 11/20/20 caps fluticasone propionate 110 1 puff inhalation ONCE PRN SOB #12 12/23/20 mcg/actuation HFA aerosol inhaler grams (Flovent HFA) pen needle, diabetic 32 gauge x #200 ea 12/07/21 (BD Ultra-Fine Farnaz Pen Needle) insulin glargine 100 unit/mL (3 40 unit (0.4 mL) SUBCUT BID 90 03/07/22 mL) subcutaneous pen (Lantus days #72 mL Solostar U-100 Insulin) phenazopyridine 100 mg tablet 100 mg PO TID PRN pain 6 doses #6 05/17/22 (Pyridium) tabs lisinopril 40 mg tablet 40 mg PO Q DAY #90 tabs 08/03/22 amlodipine 5 mg tablet 10 mg (2 x 5 mg) PO DAILY #180 tabs 09/05/22 pantoprazole 40 mg tablet,delayed 40 mg PO DAILY #90 tabs 09/05/22 release clonidine HCl 0.1 mg tablet 0.1 mg PO BEDTIME #180 tabs 09/19/22 estradiol 10 mcg vaginal insert 10 mcg vaginal DAILY 0 weeks #36 12/05/22 inserts ondansetron 4 mg disintegrating 4 mg PO Q6H PRN nausea and 12/05/22 tablet vomiting #20 tabs levofloxacin 500 mg tablet 500 mg PO DAILY #5 tabs 12/13/22 Allergies Allergy/AdvReac Type Severity Reaction Status Date / Time acetaminophen [ACETAMINOPHEN] AdvReac Severe Gastrointestinal Verified 12/13/22 14:53 Upset amoxicillin [From Augmentin] AdvReac Severe Nausea, Verified 12/13/22 14:53 Vomiting, Diarrhea clavulanic acid AdvReac Severe Nausea, Verified 12/13/22 14:53 [From Augmentin] Vomiting, Diarrhea oxycodone [OXYCODONE] AdvReac Severe (PERCOCET) Verified 12/13/22 14:53 CONVULSION hydrochlorothiazide AdvReac Mild nausea Verified 12/13/22 14:53 rosuvastatin [Crestor] AdvReac Mild flared Verified 12/13/22 14:53 gastritis Patient History <Keeley Hernandez, DO - Last Filed: 12/13/22 23:24> Medical History Gastroparesis GERD (gastroesophageal reflux disease) Gastritis Epigastric pain Nausea Gallbladder sludge Bloating Altered bowel habits Abdominal tenderness Elevated LFTs Hyperlipidemia associated with type 2 diabetes mellitus Constipation Diverticulosis Eye abnormalities (~1987) Radiculopathy affecting upper extremity Cervical pain (neck) Obesity Back pain (Unknown) Macromastia (Unknown) Diverticulosis (Unknown) Hypertension (Unknown) Allergy (Unknown) Asthma (Unknown) Colon polyps (Unknown) Diabetes (Unknown) Essential hypertension Controlled type 2 diabetes mellitus without complication (10/21/10) Mild intermittent asthma with acute exacerbation (06/01/10) Surgical History S/P cholecystectomy Hx of eye surgery History of total abdominal hysterectomy and bilateral salpingo-oophorectomy (1989) History of bilateral breast reduction surgery (11/2016) Family History Mother Diabetes mellitus Diverticulitis Hypertension Brother FH: CABG (coronary artery bypass surgery) Hypertension Diabetes mellitus Grandmother No problems noted. Social History marital status: household members: spouse occupational status: previously employed Smoking Status: Former smoker second hand exposure: Yes alcohol intake: current substance use type: does not use Smoking Status: Former smoker alcohol intake frequency: holidays/special occasions only Substance Use Type: does not use Exam <Keeley Hernandez, - Last Filed: 12/13/22 23:24> Initial Vital Signs Initial Vital Signs: Vital Signs Temperature 97.7 F 12/13/22 06:38 Pulse Rate 102 H 12/13/22 06:38 Respiratory Rate 20 12/13/22 06:38 Blood Pressure 196/82 H 12/13/22 06:38 Pulse Oximetry 96 12/13/22 06:38 Oxygen Delivery Method Room Air 12/13/22 06:38 GENERAL: Alert 77-year-old female shaking sitting upright and in no acute distress. HEENT: Head atraumatic,EOMI, pupils reactive, face symmetric, moist mucous membranes CARDIOVASCULAR: Regular rate and rhythm without murmurs, rubs or gallops. RESPIRATORY: Breath sounds equal bilaterally, no wheezes rales or rhonchi. ABDOMEN: Soft, nontender. Normoactive bowel sounds all 4 quadrants. No guarding or rebound. EXTREMITIES: Normal range of motion, no clubbing or edema. Neurovascularly intact NEUROLOGICAL: Alert and oriented x4.Normal gait and speech. Cranial nerves II through XII grossly intact. SKIN: Warm, dry, no laceration, no petechiae, no rashes or lesions. <Radha Barnhart DO - Last Filed: 12/20/22 22:55> Initial Vital Signs Initial Vital Signs: Vital Signs Temperature 97.7 F 12/13/22 06:38 Pulse Rate 102 H 12/13/22 06:38 Respiratory Rate 20 12/13/22 06:38 Blood Pressure 196/82 H 12/13/22 06:38 Pulse Oximetry 96 12/13/22 06:38 Oxygen Delivery Method Room Air 12/13/22 06:38 Course <Keeley Hernandez, DO - Last Filed: 12/13/22 23:24> Orders Ordered: Discontinued Medications Acetaminophen (Ofirmev) 1,000 mg in 100 mls @ 400 mls/hr IV NOW ONE Stop: 12/13/22 07:11 Last Infusion: 12/13/22 08:12 Dose: Infused Documented By: Admin: 12/13/22 07:38 Dose: 400 mls/hr Documented By: DAYAN Pantoprazole Sodium (Pantoprazole 40 Mg Vial) 80 mg IV NOW ONE Stop: 12/13/22 06:39 Last Admin: 12/13/22 07:38 Dose: 80 mg Documented By: DAYAN Vital Signs Vital signs: Vital Signs - 8 hr 12/13/22 06:38 12/13/22 06:39 12/13/22 07:00 Temperature 97.7 F Pulse Rate 102 H 122 H 114 H Respiratory Rate 20 Blood Pressure 196/82 H Pulse Oximetry 96 97 98 Oxygen Delivery Method Room Air 12/13/22 07:01 12/13/22 07:01 12/13/22 07:50 Temperature Pulse Rate 109 H 102 H Respiratory Rate Blood Pressure 137/60 Pulse Oximetry 97 97 Oxygen Delivery Method 12/13/22 07:51 12/13/22 07:51 12/13/22 08:00 Temperature Pulse Rate 104 H 93 H Respiratory Rate 19 Blood Pressure 131/63 Pulse Oximetry 96 95 Oxygen Delivery Method 12/13/22 08:15 12/13/22 08:30 12/13/22 08:45 Temperature Pulse Rate 91 H 95 H 96 H Respiratory Rate 23 23 29 H Blood Pressure 131/63 Pulse Oximetry 95 96 96 Oxygen Delivery Method 12/13/22 09:00 Temperature Pulse Rate 104 H Respiratory Rate 13 Blood Pressure Pulse Oximetry 97 Oxygen Delivery Method <Radha Barnhart DO - Last Filed: 12/20/22 22:55> Orders Ordered: Discontinued Medications Acetaminophen (Ofirmev) 1,000 mg in 100 mls @ 400 mls/hr IV NOW ONE Stop: 12/13/22 07:11 Last Infusion: 12/13/22 08:12 Dose: Infused Documented By: Admin: 12/13/22 07:38 Dose: 400 mls/hr Documented By: DAYAN Pantoprazole Sodium (Pantoprazole 40 Mg Vial) 80 mg IV NOW ONE Stop: 12/13/22 06:39 Last Admin: 12/13/22 07:38 Dose: 80 mg Documented By: DAYAN Vital Signs Vital signs: Vital Signs - 8 hr 12/13/22 06:38 12/13/22 06:39 12/13/22 07:00 Temperature 97.7 F Pulse Rate 102 H 122 H 114 H Respiratory Rate 20 Blood Pressure 196/82 H Pulse Oximetry 96 97 98 Oxygen Delivery Method Room Air 12/13/22 07:01 12/13/22 07:01 12/13/22 07:50 Temperature Pulse Rate 109 H 102 H Respiratory Rate Blood Pressure 137/60 Pulse Oximetry 97 97 Oxygen Delivery Method 12/13/22 07:51 12/13/22 07:51 12/13/22 08:00 Temperature Pulse Rate 104 H 93 H Respiratory Rate 19 Blood Pressure 131/63 Pulse Oximetry 96 95 Oxygen Delivery Method 12/13/22 08:15 12/13/22 08:30 12/13/22 08:45 Temperature Pulse Rate 91 H 95 H 96 H Respiratory Rate 23 23 29 H Blood Pressure 131/63 Pulse Oximetry 95 96 96 Oxygen Delivery Method 12/13/22 09:00 Temperature Pulse Rate 104 H Respiratory Rate 13 Blood Pressure Pulse Oximetry 97 Oxygen Delivery Method MDM - GI Bleed <Keleey Hernandez DO - Last Filed: 12/13/22 23:24> Lab Data 12/13/22 06:50 12/13/22 06:50 Labs: Lab Results 12/13/22 Range/Units 06:50 WBC 14.0 H (4.5-11.0) X10^3/uL RBC 4.80 (4.0-5.2) X10^6/uL Hgb 13.8 (12.0-16.0) g/dL Hct 41.4 (36-46) % MCV 86.3 (80-100) fL MCH 28.9 (26-34) PG MCHC 33.5 (30-36) % RDW 14.4 (11.6-14.8) % Plt Count 317 (150-400) X10^3/uL Neut % (Auto) 78.0 H (50-75) % Lymph % (Auto) 15.3 L (25-40) % [place] % (Auto) 5.9 (3-14) % Eos % (Auto) 0.0 L (2-4) % Baso % (Auto) 0.8 (0-2) % Neut # (Auto) 50856 H (6814-7361) /uL Lymph # (Auto) 2100 (0568-6711) /uL [place] # (Auto) 800 (0-900) /uL Eos # (Auto) 0 (0-450) /uL Baso # (Auto) 100 (0-100) /uL PT 12.7 (10.1-12.7) SECONDS INR 1.1 (0.9-1.3) APTT 28 (26-36) SECONDS Sodium 140 (137-145) mmol/L Potassium 4.1 (3.4-5.1) mmol/L Chloride 100 (98-107) mmol/L Carbon Dioxide 25 (22-32) mmol/L BUN 19 H (7-17) mg/dL Creatinine 1.10 H (0.52-1.04) mg/dL Estimated GFR 52 L (>60) mL/min BUN/Creatinine Ratio 17.3 (6-22) Glucose 184 H (80-110) mg/dL Lactate 2.1 (0.7-2.1) mmol/L Calcium 10.0 (8.4-10.2) mg/dL Total Bilirubin 1.1 (0.2-1.3) mg/dL AST 45 H (14-36) IU/L ALT 26 (<35) IU/L Alkaline Phosphatase 96 (38-126) U/L Total Protein 8.7 H (6.3-8.2) g/dL Albumin 4.8 (3.5-5.0) g/dL Globulin 3.9 (1.7-4.1) g/dL Albumin/Globulin Ratio 1.2 (1.0-2.8) Lipase 87 (23-300) U/L Blood Type O Positive Antibody Screen Negative MDM Narrative Medical decision making narrative: Major 77-year-old female scheduled today for colonoscopy start prep last night increasing rectal bleeding with blood clots. I have seen pictures myself. However what is here in the ED is diluted blood and very small amount. She is tachycardic hypertensive and shaking. Blood work does not show any anemia despite having rectal bleeding for a number of days. Awaiting for CT. Patient is given Protonix. Signed out to Dr. Barnhart 12/13/22 Kietk: Patient signed out to myself by Dr. Hernandez. Patient seen and evaluated by myself. Labs show leukocytosis of 14 hemoglobin is quite stable compared to priors, platelets are normal. Patient's electrolyte renal function and BUN show BUN 19, creatinine 1.1 which appears pretty close to prior in November, electrolytes are normal glucose is 184 AST is 45 but otherwise negative LFTs. Per Dr. Hernandez patient had witnessed bowel movement here which had some streaks of red but no large clots noted in the department. Has not had any persistent output. She had CT abdomen pelvis with GI protocol notes some radiodense material the cecum could be small amount of clotted blood versus hyperdense ingested material small hyperdensity distal rectum could be hemorrhoid there is mild diffuse thickening of the colon from the proximal descending colon suspect some distal colitis appendix is normal with pelvic floor relaxation. Spoke with Dr. Beckett: Reviewed patient's findings with her and her family. Patient seen independently evaluated by myself. She notes she had been having some bleeding and it stopped and then restarted when she started the bowel prep it got worse. She has some in the bathroom which is clear liquidy with small spots of red, no large clots. Discussed with Dr. Beckett patient may not have had the full prep, when I talked to the patient in the room she had 1 bottle but had completed the 2nd. He would like for still continue with colonoscopy she is felt to be stable and will likely be most expeditious to have her discharge and have her colonoscopy today and she is hemodynamic stable and appropriate for this. Discussed with patient and family they feel comfortable with this plan discussed she can return at any time if things change. <Radha Barnhart, - Last Filed: 12/20/22 22:55> Lab Data Labs: Lab Results 12/13/22 Range/Units 06:50 WBC 14.0 H (4.5-11.0) X10^3/uL RBC 4.80 (4.0-5.2) X10^6/uL Hgb 13.8 (12.0-16.0) g/dL Hct 41.4 (36-46) % MCV 86.3 (80-100) fL MCH 28.9 (26-34) PG MCHC 33.5 (30-36) % RDW 14.4 (11.6-14.8) % Plt Count 317 (150-400) X10^3/uL Neut % (Auto) 78.0 H (50-75) % Lymph % (Auto) 15.3 L (25-40) % [place] % (Auto) 5.9 (3-14) % Eos % (Auto) 0.0 L (2-4) % Baso % (Auto) 0.8 (0-2) % Neut # (Auto) 06268 H (5967-7255) /uL Lymph # (Auto) 2100 (1841-4351) /uL [place] # (Auto) 800 (0-900) /uL Eos # (Auto) 0 (0-450) /uL Baso # (Auto) 100 (0-100) /uL PT 12.7 (10.1-12.7) SECONDS INR 1.1 (0.9-1.3) APTT 28 (26-36) SECONDS Sodium 140 (137-145) mmol/L Potassium 4.1 (3.4-5.1) mmol/L Chloride 100 (98-107) mmol/L Carbon Dioxide 25 (22-32) mmol/L BUN 19 H (7-17) mg/dL Creatinine 1.10 H (0.52-1.04) mg/dL Estimated GFR 52 L (>60) mL/min BUN/Creatinine Ratio 17.3 (6-22) Glucose 184 H (80-110) mg/dL Lactate 2.1 (0.7-2.1) mmol/L Calcium 10.0 (8.4-10.2) mg/dL Total Bilirubin 1.1 (0.2-1.3) mg/dL AST 45 H (14-36) IU/L ALT 26 (<35) IU/L Alkaline Phosphatase 96 (38-126) U/L Total Protein 8.7 H (6.3-8.2) g/dL Albumin 4.8 (3.5-5.0) g/dL Globulin 3.9 (1.7-4.1) g/dL Albumin/Globulin Ratio 1.2 (1.0-2.8) Lipase 87 (23-300) U/L Blood Type O Positive Antibody Screen Negative Imaging Data CT scan - abdomen/pelvis: Radiologist's Impression: [address] [address] [address] Scan Report Signed Patient: Cheyenne Adams MR#: [id number] : 1945 Acct:[id number] Age/Sex: 77 / F Date of Service: 12/13/22 Loc: ED Accession Number: [id number] Procedure: CT angio Abd/Pel GI Bleed Ordering Provider: Keeley Hernandez D.O. PROCEDURE: CT ANGIO ABD/PEL GI BLEED INDICATIONS: GI bleed TECHNIQUE: After the administration of intravenous contrast, 2.5 mm thick sections acquired from the diaphragm to the symphysis. 10 mm maximum-intensity projection (MIP) reformats were then acquired. For radiation dose reduction, the following was used: automated exposure control. COMPARISON: [facility], CT, CT ABDOMEN PELVIS W CON, 12/21/2020, 12:57. FINDINGS: Image quality: Excellent. Aorta: Normal caliber. No aneurysm or dissection. Mesenteric arteries: Celiac trunk, superior and inferior mesenteric arteries appear patent. Right pelvic arteries: Patent Left pelvic arteries: Patent Extravascular soft tissues: Lung bases are clear. Heart size is normal. Liver is normal in size and enhancement. Liver cysts. No solid masses. Gallbladder is surgically absent . Biliary system is non dilated. Pancreas enhances normally. Spleen is normal in size and enhancement. No adrenal nodules. Kidneys are normal in size and enhancement, without hydronephrosis. There is radiodense material present in the cecum which may potentially represent small amount of clotted blood, or can potentially represent hyperdense ingested material. There is also a tiny hyperdensity in the distal rectum which may potentially represent a hemorrhoid. The colon from the level of the proximal descending colon through the rectum has a mildly diffusely thickened wall. It is decompressed. Suspect distal colitis. The appendix is present and fluid- filled without abnormal distention or inflammatory change surrounding the appendix. No free fluid or air. No retroperitoneal or mesenteric adenopathy. No ventral hernias. No suspicious bony lesions. No vertebral body compression fractures. Uterus is surgically absent. There is a degree of pelvic floor relaxation. Lumbar degenerative change. IMPRESSION: 1. There is either at a small amount of clot in the cecum or hyperdense ingested material. 2. Suspect probable rectal hemorrhoid period 3. Findings consistent with distal colitis involving the descending colon, sigmoid colon, and rectum. Consider inflammatory versus infectious colitis. 4. Remote cholecystectomy and hysterectomy. 5. There is a degree of pelvic floor relaxation. Dictated by: Milad Munoz M.D. on 12/13/2022 at 8:16 Approved by: Milad Munoz M.D. on 12/13/2022 at 8:26 MDM Narrative Medical decision making narrative: 12/13/22 Mank: Patient signed out to myself by Dr. Hernandez. Patient seen and evaluated by myself. Labs show leukocytosis of 14 hemoglobin is quite stable compared to priors, platelets are normal. Patient's electrolyte renal function and BUN show BUN 19, creatinine 1.1 which appears pretty close to prior in November, electrolytes are normal glucose is 184 AST is 45 but otherwise negative LFTs. Per Dr. Hernandez patient had witnessed bowel movement here which had some streaks of red but no large clots noted in the department. Has not had any persistent output. She had CT abdomen pelvis with GI protocol notes some radiodense material the cecum could be small amount of clotted blood versus hyperdense ingested material small hyperdensity distal rectum could be hemorrhoid there is mild diffuse thickening of the colon from the proximal descending colon suspect some distal colitis appendix is normal with pelvic floor relaxation. Spoke with Dr. Beckett: Reviewed patient's findings with her and her family. Patient seen independently evaluated by myself. She notes she had been having some bleeding and it stopped and then restarted when she started the bowel prep it got worse. She has some in the bathroom which is clear liquidy with small spots of red, no large clots. Discussed with Dr. Beckett patient may not have had the full prep, when I talked to the patient in the room she had 1 bottle but had completed the 2nd. He would like for still continue with colonoscopy she is felt to be stable and will likely be most expeditious to have her discharge and have her colonoscopy today and she is hemodynamic stable and appropriate for this. Discussed with patient and family they feel comfortable with this plan discussed she can return at any time if things change. Discharge Plan Departure Patient Disposition: Home Clinical Impression: Rectal bleeding Instructions: DI for Rectal Bleeding Activity Restrictions/Additional Instructions: Follow-up today at your colonoscopy afternoon. I spoke with the general surgeon on-call they wish to continue with your scope today. Continue with the current plan. Please return for rapidly worsening symptoms, passing out, new abdominal back or flank pain, chest pain or shortness of breath, persistent vomiting other new or concerning changes. Prescriptions: No Action albuterol sulfate 90 mcg/actuation HFA aerosol inhaler 2 puff INHALATION Q4-6H PRN (Reason: shortness of breath or wheezing) Qty: 18 3RF (DME) Precision Xtra Test Strips Qty: 100 3RF Rx Instructions: Test blood sugar once daily Flovent HFA 110 mcg/actuation HFA aerosol inhaler 1 puff INHALATION ONCE PRN (Reason: SOB) Qty: 12 3RF (DME) pen needle, diabetic [BD Ultra-Fine Farnaz Pen Needle] 32 gauge x 5/32 needle See Rx Instructions .Route Qty: 200 3RF Rx Instructions: Use to adminster SQ insulin twice daily as directed, BRAND PER INSURANCE, DISP 90DAYS Lantus Solostar U-100 Insulin 100 unit/mL (3 mL) insulin pen 40 unit SUBCUT BID 90 Days Qty: 72 3RF phenazopyridine [Pyridium] 100 mg tablet 100 mg PO TID PRN (Reason: pain) Qty: 6 0RF lisinopril 40 mg tablet 40 mg PO Q DAY Qty: 90 3RF Rx Instructions: Take one tablet daily at bedtime for hypertension. amlodipine 5 mg tablet 10 mg PO DAILY Qty: 180 3RF Rx Instructions: Take 2 tablets (10mg) daily for hypertension pantoprazole 40 mg tablet,delayed release (DR/EC) 40 mg PO DAILY Qty: 90 3RF Rx Instructions: Take 1 tablet daily. clonidine HCl 0.1 mg tablet 0.1 mg PO BEDTIME Qty: 180 0RF Rx Instructions: Take 1 tab at bedtime daily. Goal for BP <130/80 (DME) Lancets UltraFine 30g Qty: 100 3RF Rx Instructions: Test blood sugar once daily ibuprofen 200 mg capsule 200 mg PO BID PRN (Reason: Pain (Scale Score 4-6)) docusate sodium 100 mg capsule 100 mg PO BID PRN (Reason: constipation) Qty: 90 3RF Rx Instructions: Take 1 tab twice daily as needed, HOLD FOR DIARRHEA x24 hours, then restart. Saccharomyces boulardii [Digest Probiotic (S.boulardii)] 250 mg capsule 5,000 mmu cells PO DAILY atorvastatin 10 mg tablet 5 mg PO BEDTIME metoclopramide HCl 10 mg tablet 10 mg PO 3XD estradiol 10 mcg insert 10 mcg vaginal DAILY Qty: 36 4RF Rx Instructions: Insert vaginally at bedtime daily x14 days then 2x/week thereafter ondansetron 4 mg tablet,disintegrating 4 mg PO Q6H PRN (Reason: nausea and vomiting) Qty: 20 1RF Hold Instructions: Trial metoclopramide amitriptyline 10 mg tablet 10 mg PO ONCE PM levofloxacin 500 mg tablet 500 mg PO DAILY Qty: 5 0RF Referrals: Barbara Paul ARNP [Primary Care Provider] - Stand Alone Forms: Patient Portal/API
[2022-12-13 07:03] LABS: Add Manual Diff / Slide Review NO; Basophils Absolute Auto 100 /uL (0-100); Basophils Percent Auto 0.8 % (0-2); Eosinophils Absolute Auto 0 /uL (0-450); Hematocrit 41.4 % (36-46); Hemoglobin 13.8 g/dL (12.0-16.0); Lymphocytes Absolute Auto 2100 /uL (1100-4500); Lymphocytes Percent Auto 15.3 % (25-40); Mean Corpuscular HGB Conc 33.5 % (30-36); Mean Corpuscular Hemoglobin 28.9 PG (26-34); Mean Corpuscular Volume 86.3 fL (80-100); Monocytes Absolute Auto 800 /uL (0-900); Monocytes Percent Auto 5.9 % (3-14); Neutrophils Absolute Auto 10900 /uL (1500-7000); Platelet Count 317 X10^3/uL (150-400); Red Cell Distribution Width 14.4 % (11.6-14.8)
[2022-12-13 07:12] LABS: INR 1.1 (0.9-1.3); Prothrombin Time 12.7 SECONDS (10.1-12.7)
[2022-12-13 07:15] LABS: PTT Partial Thromboplastin Tim 28 SECONDS (26-36)
[2022-12-13 07:19] LABS: Alanine Aminotransferase 26 IU/L (<35); Albumin 4.8 g/dL (3.5-5.0); Albumin Globulin Ratio 1.2 (1.0-2.8); Alkaline Phosphatase 96 U/L (38-126); Aspartate Aminotransferase 45 IU/L (14-36); BUN Creatinine Ratio 17.3 (6-22); Bilirubin Total 1.1 mg/dL (0.2-1.3); Blood Urea Nitrogen 19 mg/dL (7-17); Carbon Dioxide 25 mmol/L (22-32); Chloride 100 mmol/L (98-107); Estimated Glomerular Filt Rate 52 mL/min (>60); Globulin 3.9 g/dL (1.7-4.1); Glucose 184 mg/dL (80-110); HEMOLYSIS < 15 (0-50); Lactate (Lactic Acid) 2.1 mmol/L (0.7-2.1); Lipase 87 U/L (23-300); Potassium 4.1 mmol/L (3.4-5.1); Sodium 140 mmol/L (137-145); Total Protein 8.7 g/dL (6.3-8.2)
[2022-12-13] MEDS: PANTOPRAZOLE 40 MG VIAL 80 MG IV (07:38)
[2022-12-13] MEDS: ACETAMINOPHEN IV 1,000 MG/100 ML VIAL 400 MG IV (07:38)
[2022-12-13 08:39] LABS: Reflexed Lactate in 2 Hours Y
--- NOTE | 2022-12-13 09:04 | PC.NURSE ---
pt reports that she has been having bloody bowel movements with clots since yesterday. reports that blood & clots are [id number] red. describes pain as 5/10 and cramping when she gets up to move around or has bm. pt slightly anxious but states that she is scheduled for a colonoscopy today at 3pm. pt denies any bloody emesis. denies cp, n/v, sob and dizziness. pt placed on cardiac cath technician per protocol and vital signs are stable.
--- NOTE | 2022-12-13 09:31 | PC.NURSE ---
Upon d/c pt's HR elevated as high as 129. Dr. Barnhart updated. HR then returned to 110s. Dr. Barnhart ok'd D/C
== END 2022-12-13 09:37 | disposition home or self-care (01) ==
PROVIDERS: Emergency Medicine; Emergency Provider Emergency Medicine; PCP Nurse Practitioner
DX: K62.5 Hemorrhage of anus and rectum (principal)
CPT/HCPCS: 36415; 74174; 80053; 83605; 83690; 85025; 85610; 85730; 86850; 86900; 86901; C9113; J0131; Q9967

== ENCOUNTER 2022-12-13 14:16 | Day surgery (SDC) | payer MEDICARE, OTHER, SELFPAY ==
[2022-02-21 10:37] VITALS: BMI 34.9
--- NOTE | 2022-12-13 | PATH_ITS ---
[facility] Accession Number: [id number] No. of containers..01 Tissue . 01 Material submitted: . colon - RANDOM COLON BIOPSIES . 01 Diagnosis: COLON, RANDOM, BIOPSIES: - BENIGN COLONIC MUCOSA, NEGATIVE FOR MICROSCOPIC COLITIS. - NEGATIVE FOR ACTIVE OR CHRONIC COLITIS. - SEE COMMENT. -- COMMENT: TRICHROME SPECIAL STAIN IS PERFORMED WITH APPROPRIATE CONTROL AND IS NEGATIVE OF INCREASED SUB EPITHELIAL COLLAGEN. TECHNICAL NOTE: THE SPECIAL STAINS REPORTED WERE PERFORMED AT [facility] ([address], [facility] [address]). THEY WERE DEVELOPED AND THEIR PERFORMANCE CHARACTERISTICS DETERMINED BY [employer]. THEY HAVE NOT BEEN CLEARED OR APPROVED BY THE U.S. FOOD AND DRUG ADMINISTRATION, ALTHOUGH SUCH APPROVAL IS NOT REQUIRED FOR ANALYTE-SPECIFIC REAGENTS OF THIS TYPE. TXN 12/22/2022 1427 Local . 01 Electronically signed: . Tawfemaggie Salmon MD, Pathologist NPI- [id number] . 01 Gross description: . RANDOM COLON BIOPSIES: Received in formalin are 4 fragment(s) of matamoros, soft tissue measuring 0.2 x 0.2 x 0.1 cm to 0.3 x 0.3 x 0.2 cm submitted entirely in 1 cassette(s) /GEE 12/14/2022 1836 Local . 01 Pathologist provided ICD-10: Z12.11 . 01 CPT . 947548, 506898 Specimen Comment: A courtesy copy of this report has been sent to [phone] Performed at: 01 [facility] [address], [place], [place] [address] MD Heraclio James MD Phone: [phone]
[2022-12-13] MEDS: LACTATED RINGERS 1,000 ML 42 ML IV (14:49)
[2022-12-13 15:09] VITALS: BP 157/75; PULSE 113; RESP 20; TEMP 36.9; O2SAT 96; BMI 33.1
--- NOTE | 2022-12-13 15:27 | P.HP_ITS ---
History of Present Illness History of Present Illness Date Patient Seen: 12/13/22 Time Patient Seen: 15:28 Chief complaint: [employer] Narrative: 77-year-old woman here for screening colonoscopy. Last colonoscopy 2019 notable for benign polyps. No family history of intestinal malignancy. She is a number of abdominal concerns 1 being chronic constipation to rectal bleeding which is intermittent and bright red in nature in fact she was in the emergency department room this morning for evaluation of such. CT abdomen demonstrated diffuse colitis. [facility] Medical History Gastroparesis GERD (gastroesophageal reflux disease) Gastritis Epigastric pain Nausea Gallbladder sludge Bloating Altered bowel habits Abdominal tenderness Elevated LFTs Hyperlipidemia associated with type 2 diabetes mellitus Constipation Diverticulosis Eye abnormalities (~1987) Radiculopathy affecting upper extremity Cervical pain (neck) Obesity Back pain (Unknown) Macromastia (Unknown) Diverticulosis (Unknown) Hypertension (Unknown) Allergy (Unknown) Asthma (Unknown) Colon polyps (Unknown) Diabetes (Unknown) Essential hypertension Controlled type 2 diabetes mellitus without complication (10/21/10) Mild intermittent asthma with acute exacerbation (06/01/10) Surgical History S/P cholecystectomy Hx of eye surgery History of total abdominal hysterectomy and bilateral salpingo-oophorectomy (1989) History of bilateral breast reduction surgery (11/2016) Family History Mother Diabetes mellitus Diverticulitis Hypertension Brother FH: CABG (coronary artery bypass surgery) Hypertension Diabetes mellitus Grandmother No problems noted. Social History marital status: household members: spouse occupational status: previously employed Smoking Status: Former smoker second hand exposure: Yes alcohol intake: current substance use type: does not use Meds Home Medications and Allergies Home Medications Medication Instructions Recorded Confirmed Type Lancets UltraFine 30g #100 ea 11/13/18 05/16/22 Rx albuterol sulfate 90 mcg/actuation 2 puff inhalation Q4-6H PRN 11/26/19 12/13/22 Rx aerosol inhaler shortness of breath or wheezing #18 grams ibuprofen 200 mg capsule 200 mg PO BID PRN Pain (Scale 08/05/20 12/13/22 History Score 4-6) Precision Xtra Test Strips #100 ea 10/27/20 05/16/22 Rx docusate sodium 100 mg capsule 100 mg PO BID PRN constipation #90 11/20/20 12/13/22 Rx caps fluticasone propionate 110 1 puff inhalation ONCE PRN SOB #12 12/23/20 05/16/22 Rx mcg/actuation HFA aerosol inhaler grams (Flovent HFA) Saccharomyces boulardii 250 mg 5,000 mmu cells PO DAILY 11/18/21 12/13/22 History capsule (Digest Probiotic (S.boulardii)) atorvastatin 10 mg tablet 5 mg PO BEDTIME 11/24/21 12/13/22 History pen needle, diabetic 32 gauge x #200 ea 12/07/21 05/16/22 Rx 5/32 (BD Ultra-Fine Farnaz Pen Needle) insulin glargine 100 unit/mL (3 40 unit (0.4 mL) SUBCUT BID 90 03/07/22 12/13/22 Rx mL) subcutaneous pen (Lantus days #72 mL Solostar U-100 Insulin) phenazopyridine 100 mg tablet 100 mg PO TID PRN pain 6 doses #6 05/17/22 12/13/22 Rx (Pyridium) tabs lisinopril 40 mg tablet 40 mg PO Q DAY #90 tabs 08/03/22 12/13/22 Rx amlodipine 5 mg tablet 10 mg (2 x 5 mg) PO DAILY #180 tabs 09/05/22 12/13/22 Rx pantoprazole 40 mg tablet,delayed 40 mg PO DAILY #90 tabs 09/05/22 12/13/22 Rx release clonidine HCl 0.1 mg tablet 0.1 mg PO BEDTIME #180 tabs 09/19/22 12/13/22 Rx estradiol 10 mcg vaginal insert 10 mcg vaginal DAILY 0 weeks #36 12/05/22 12/13/22 Rx inserts metoclopramide HCl 10 mg tablet 10 mg PO 3XD 12/05/22 12/13/22 History ondansetron 4 mg disintegrating 4 mg PO Q6H PRN nausea and 12/05/22 12/13/22 Rx tablet vomiting #20 tabs amitriptyline 10 mg tablet 10 mg PO ONCE PM 12/13/22 12/13/22 History Allergies Allergy/AdvReac Type Severity Reaction Status Date / Time acetaminophen [ACETAMINOPHEN] AdvReac Severe Gastrointestinal Verified 12/13/22 14:53 Upset amoxicillin [From Augmentin] AdvReac Severe Nausea, Verified 12/13/22 14:53 Vomiting, Diarrhea clavulanic acid AdvReac Severe Nausea, Verified 12/13/22 14:53 [From Augmentin] Vomiting, Diarrhea oxycodone [OXYCODONE] AdvReac Severe (PERCOCET) Verified 12/13/22 14:53 CONVULSION hydrochlorothiazide AdvReac Mild nausea Verified 12/13/22 14:53 rosuvastatin [Crestor] AdvReac Mild flared Verified 12/13/22 14:53 gastritis Exam Vital Signs (past 8 hours): - 12/13/22 15:09 Temperature 98.5 F Pulse Rate 113 H Respiratory Rate 20 Blood Pressure 157/75 H Pulse Oximetry 96 Oxygen Delivery Method Room Air Oxygen Delivery Method Room Air Narrative Exam Narrative: General adult woman alert oriented no acute distress Chest nonlabored respiration Extremities warm well perfused Assessment & Plan Assessment & Plan narrative: The patient requires colorectal screening and colonoscopy is recommended. Technical details were discussed. Risks, benefits, alternatives explained. Ris ks including but not limited to myocardial infarction, aspiration, bleeding, pain, missed lesion, incomplete examination, need for further radiographic studies, colonic perforation, and need for major abdominal surgery were discussed. All questions were answered to their satisfaction, and they are in agreement with this plan.
[2022-12-13 16:01] VITALS: BP 139/67; PULSE 83; RESP 22; TEMP 36.6; O2SAT 94
--- NOTE | 2022-12-13 16:04 | PM.OP.COLON ---
Operative Date/Time/Diagnoses Date of procedure: 12/13/22 Time of procedure: 16:04 Pre-op diagnosis: Colorectal screening Rectal bleeding Post-op diagnosis: other (Colitis) Procedure & Clinicians Study performed: Sigmoidoscopy Indications: 77-year-old woman here for screening colonoscopy. Day before procedure she developed abdominal pain blood per rectum CT demonstrates colitis Surgeon: Robson Guzmán Procedure Notes Procedure in detail: The history and physical was performed/updated and the patient is ASA class is 2. The procedure was discussed in detail with the patient. Potential risks complications including infection, bleeding, missed diagnosis, perforation, need for surgery, and were explained. Their questions were answered and informed consent was obtained. Patient was brought to the procedure room and placed standard monitoring equipment. The patient's vital signs were monitored continuously throughout the entire procedure. Prior to starting time-out was performed. The patient was placed in the left lateral recumbent position. Procedural sedation was administered by anesthesia. Examination began with a thorough inspection of the perianal area there was no evidence of fissures, fistulae, external hemorrhoids or cutaneous malignancy. The colonoscopy scope was then placed into the anal canal and was advanced forward. There was moderate colitis throughout the rectum and sigmoid colon. Biopsies of the colon were performed with forceps. There was no active hemorrhage. Given the degree of colitis as well as the poor quality of prep we did not proceed further than the sigmoid colon for risk of perforation. The scope was then slowly withdrawn. No masses or polyps. Specimen(s): other (Colon biopsies) Impression: Colitis Post-procedure Plan for aftercare: Levofloxacin x5 days Likely no need for further colonoscopy unless symptomatic Disposition: same day surgery
[2022-12-13 16:06] VITALS: BP 149/69; PULSE 97; RESP 18; O2SAT 97
[2022-12-13 16:12] VITALS: BP 154/66; PULSE 96; RESP 22; TEMP 37.1; O2SAT 97
[2022-12-13 16:17] VITALS: BP 160/69; PULSE 96; RESP 22; TEMP 37.1; O2SAT 98
== END 2022-12-13 16:34 | disposition home or self-care (01) ==
PROVIDERS: PCP Nurse Practitioner; Referring Provider Surgery; Visit Provider Surgery
PROC: 0DJD8ZZ Inspection of Lower Intestinal Tract, Via Natural or Artificial Opening Endoscopic (ICD-10-PCS; CPT 45378; principal; 2022-12-13 15:30)
DX: Z12.11 Encounter for screening for malignant neoplasm of colon (principal); K62.5 Hemorrhage of anus and rectum; K52.9 Noninfective gastroenteritis and colitis, unspecified
CPT/HCPCS: 45380; 36415; 74174; 80053; 82962; 83605; 83690; 85025; 85610; 85730; 86850; 86900; 86901; 96365; 96375; 99284; C9113; J0131; J2704; Q9967

== ENCOUNTER → 2023-02-27 09:01 | Outpatient (CLI) | payer MEDICARE, OTHER, SELFPAY ==
[2022-02-21 10:37] VITALS: BMI 34.9
[2023-02-27 09:49] LABS: Add Manual Diff / Slide Review NO; Basophils Absolute Auto 100 /uL (0-100); Basophils Percent Auto 0.9 % (0-2); Eosinophils Absolute Auto 200 /uL (0-450); Eosinophils Percent Auto 1.9 % (2-4); Hematocrit 40.7 % (36-46); Lymphocytes Absolute Auto 2500 /uL (1100-4500); Lymphocytes Percent Auto 26.7 % (25-40); Mean Corpuscular HGB Conc 34.4 % (30-36); Mean Corpuscular Hemoglobin 29.8 PG (26-34); Mean Corpuscular Volume 86.6 fL (80-100); Monocytes Absolute Auto 500 /uL (0-900); Neutrophils Absolute Auto 6100 /uL (1500-7000); Neutrophils Percent Auto 65.5 % (50-75); Platelet Count 322 X10^3/uL (150-400); Red Cell Distribution Width 14.1 % (11.6-14.8); White Blood Cell Count 9.2 X10^3/uL (4.5-11.0)
[2023-02-27 10:00] LABS: Hemoglobin A1C% w Est Avg Glu 5.8 % (4.0-6.0)
[2023-02-27 10:05] LABS: Alanine Aminotransferase 22 IU/L (<35); Albumin 4.4 g/dL (3.5-5.0); Albumin Globulin Ratio 1.2 (1.0-2.8); Alkaline Phosphatase 88 U/L (38-126); Aspartate Aminotransferase 43 IU/L (14-36); BUN Creatinine Ratio 19.4 (6-22); Bilirubin Total 0.7 mg/dL (0.2-1.3); Blood Urea Nitrogen 19 mg/dL (7-17); Calcium 9.7 mg/dL (8.4-10.2); Carbon Dioxide 25 mmol/L (22-32); Chloride 103 mmol/L (98-107); Estimated Glomerular Filt Rate > 60 mL/min (>60); Globulin 3.7 g/dL (1.7-4.1); Glucose 106 mg/dL (80-110); HEMOLYSIS < 15 (0-50); Sodium 139 mmol/L (137-145); Total Protein 8.1 g/dL (6.3-8.2)
[2023-02-27 10:21] LABS: Free T3, Triiodothyronine Free 3.52 pg/mL (2.77-5.27); Free T4, Direct Thyroxine 1.18 ng/dL (0.78-2.19)
[2023-02-27 10:34] LABS: Thyroid Stimulating Hormone 3.76 uIU/mL (0.47-4.68)
== END ==
LOC: LAB 09:03
PROVIDERS: PCP Nurse Practitioner; Referring Provider Nurse Practitioner; Visit Provider Nurse Practitioner
DX: E11.9 Type 2 diabetes mellitus without complications (principal); I10 Essential (primary) hypertension; Z79.899 Other long term (current) drug therapy
CPT/HCPCS: 36415; 80053; 83036; 84439; 84443; 84481; 85025

== ENCOUNTER → 2023-08-30 09:37 | Outpatient (CLI) | payer MEDICARE, OTHER, SELFPAY ==
[2022-02-21 10:37] VITALS: BMI 34.9
[2023-08-30 11:02] LABS: Creatinine Urine Random 313.53 mg/dL
[2023-08-30 11:07] LABS: Microalbumin Urine Random 1.5 mg/dL (0-1.6)
[2023-08-30 11:36] LABS: Hemoglobin A1C% w Est Avg Glu 5.9 % (4.0-6.0)
[2023-08-30 12:07] LABS: Alanine Aminotransferase 20 IU/L (<35); Albumin 4.4 g/dL (3.5-5.0); Albumin Globulin Ratio 1.4 (1.0-2.8); Alkaline Phosphatase 101 U/L (38-126); Aspartate Aminotransferase 34 IU/L (14-36); BUN Creatinine Ratio 19.8 (6-22); Bilirubin Total 0.7 mg/dL (0.2-1.3); Blood Urea Nitrogen 19 mg/dL (7-17); Carbon Dioxide 21 mmol/L (22-32); Chloride 106 mmol/L (98-107); Cholesterol 132 mg/dL (140-199); Estimated Glomerular Filt Rate > 60 mL/min (>60); Globulin 3.2 g/dL (1.7-4.1); Glucose 148 mg/dL (80-110); HDL Cholesterol 45 mg/dL (40-60); HEMOLYSIS 21 (0-50); LDL Cholesterol Calculated 68 mg/dL (<100); Potassium 3.8 mmol/L (3.4-5.1); Sodium 139 mmol/L (137-145); Total Protein 7.6 g/dL (6.3-8.2); Triglycerides 94 mg/dL (35-150)
== END ==
PROVIDERS: PCP Nurse Practitioner; Referring Provider Nurse Practitioner; Visit Provider Nurse Practitioner
DX: E11.9 Type 2 diabetes mellitus without complications (principal); E11.69 Type 2 diabetes mellitus with other specified complication; E78.5 Hyperlipidemia, unspecified; I10 Essential (primary) hypertension; Z79.899 Other long term (current) drug therapy
CPT/HCPCS: 36415; 80053; 80061; 82043; 82570; 83036

== ENCOUNTER → 2023-09-07 10:06 | Outpatient (CLI) | payer MEDICARE, OTHER, SELFPAY ==
[2022-02-21 10:37] VITALS: BMI 34.9
--- NOTE | 2023-09-07 11:01 | EKG_ITS ---
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
== END ==
PROVIDERS: PCP Nurse Practitioner; Referring Provider Nurse Practitioner; Visit Provider Nurse Practitioner
DX: R00.2 Palpitations (principal)
CPT/HCPCS: 93005

== ENCOUNTER → 2024-03-14 09:54 | Outpatient (CLI) | payer MEDICARE, OTHER, SELFPAY ==
[2022-02-21 10:37] VITALS: BMI 34.9
[2024-03-14 10:31] LABS: Add Manual Diff / Slide Review NO; Basophils Absolute Auto 100 /uL (0-100); Basophils Percent Auto 0.9 % (0-2); Eosinophils Absolute Auto 100 /uL (0-450); Eosinophils Percent Auto 1.2 % (2-4); Hematocrit 42.9 % (36-46); Hemoglobin 14.1 g/dL (12.0-16.0); Lymphocytes Absolute Auto 3000 /uL (1100-4500); Lymphocytes Percent Auto 26.7 % (25-40); Mean Corpuscular HGB Conc 32.9 % (30-36); Mean Corpuscular Hemoglobin 28.6 PG (26-34); Mean Corpuscular Volume 86.8 fL (80-100); Monocytes Absolute Auto 600 /uL (0-900); Neutrophils Absolute Auto 7500 /uL (1500-7000); Neutrophils Percent Auto 66.2 % (50-75); Platelet Count 361 X10^3/uL (150-400); Red Blood Cell Count 4.95 X10^6/uL (4.0-5.2); Red Cell Distribution Width 14.7 % (11.6-14.8); White Blood Cell Count 11.4 X10^3/uL (4.5-11.0)
[2024-03-14 10:40] LABS: Hemoglobin A1C% w Est Avg Glu 5.4 % (4.0-6.0)
[2024-03-14 10:50] LABS: Alanine Aminotransferase 33 IU/L (<35); Albumin 4.6 g/dL (3.5-5.0); Albumin Globulin Ratio 1.4 (1.0-2.8); Alkaline Phosphatase 104 U/L (38-126); Aspartate Aminotransferase 43 IU/L (14-36); BUN Creatinine Ratio 15.8 (6-22); Blood Urea Nitrogen 18 mg/dL (7-17); Calcium 9.7 mg/dL (8.4-10.2); Carbon Dioxide 19 mmol/L (22-32); Chloride 105 mmol/L (98-107); Estimated Glomerular Filt Rate 50 mL/min (>60); Globulin 3.3 g/dL (1.7-4.1); Glucose 126 mg/dL (80-110); HEMOLYSIS < 15 (0-50); Potassium 3.9 mmol/L (3.4-5.1); Sodium 140 mmol/L (137-145); Total Protein 7.9 g/dL (6.3-8.2)
== END ==
LOC: LAB 09:57
PROVIDERS: PCP Nurse Practitioner Family; Referring Provider Nurse Practitioner; Visit Provider Nurse Practitioner
DX: R53.83 Other fatigue (principal); I10 Essential (primary) hypertension; E11.69 Type 2 diabetes mellitus with other specified complication; E78.5 Hyperlipidemia, unspecified
CPT/HCPCS: 36415; 80053; 83036; 85025

== ENCOUNTER → 2024-03-21 08:57 | Outpatient (CLI) | payer MEDICARE, OTHER, SELFPAY ==
[2022-02-21 10:37] VITALS: BMI 34.9
[2024-03-21 09:36] LABS: Appearance Urine UA CLEAR; Bilirubin Urine UA NEGATIVE (NEGATIVE); Color Urine UA YELLOW; Glucose Urine UA NEGATIVE (Negative); Ketones Urine UA NEGATIVE (NEGATIVE); Leukocyte Esterase Urine UA NEGATIVE (NEGATIVE); Nitrite Urine UA NEGATIVE (Negative); Occult Blood Urine UA NEGATIVE (Negative); Protein Urine UA NEGATIVE (Negative); Urobilinogen Urine UA 0.2 E.U./dL (0.2)
[2024-03-21 09:45] LABS: Bacteria Urine Occasional (0-1); Culture Indicated Urine Cult Not Indicated; RBC Urine 0-1/HPF (0-5/HPF); Squamous Epithelial Cell Urine 0-1 /HPF (0-5/HPF); Urine Volume 10mL (spun); WBC Urine 0-1/HPF (0-5/HPF)
== END ==
PROVIDERS: PCP Nurse Practitioner Family; Referring Provider Nurse Practitioner Family; Visit Provider Nurse Practitioner Family
DX: N39.0 Urinary tract infection, site not specified (principal)
CPT/HCPCS: 81001